=== PATIENT | male | born 1945 | race Caucasian/White ===

== ENCOUNTER 2018-04-24 15:13 | Outpatient (REF) | payer MEDICARE, SELFPAY ==
[2018-04-24 18:30] LABS: HCT 44.3 % (40.0-50.0); HGB 14.9 g/dL (13.5-17.5); Mean Corp. HGB Concentration 33.6 g/dL (32.0-36.0); Mean Corpuscular Hemoglobin 31.1 pg (27.0-33.0); Mean Corpuscular Volume 92.5 fL (80-95); Mean Platelet Volume 11.8 fL (8.0-11.0); Platelet Count 194 x1000/uL (130-400); RBC 4.79 m/cumm (4.50-6.00); RBC Distribution Width 14.5 % (11.8-14.1); White Blood Cell Count 6.16 k/cumm (4.4-10.8)
[2018-04-24 18:46] LABS: Glucose 101 mg/dL (70-100); Uric Acid 6.4 mg/dL (3.5-7.2)
[2018-04-24 18:57] LABS: Hemoglobin A1C 5.9 % (4.5-6.2)
[2018-04-24 19:09] LABS: Cholesterol 187 mg/dL (50-200); HDL Cholesterol 41 mg/dL (40-60); LDL CHOLESTEROL 119 mg/dL (<100); Triglyceride 229 mg/dL (30-150)
== END 2018-04-24 15:14 ==
LOC: NCHCN 15:13
PROVIDERS: PCP Internal Medicine; Visit Provider Internal Medicine
DX: R73.03 Prediabetes (principal); E78.5 Hyperlipidemia, unspecified; M10.9 Gout, unspecified
CPT/HCPCS: 80061; 82947; 83721; 85027; 83036; 84550

== ENCOUNTER 2019-07-06 14:46 | Outpatient (REF) | payer MEDICARE, SELFPAY ==
[2019-07-06 18:55] LABS: HCT 43.3 % (40.0-50.0); HGB 14.7 g/dL (13.5-17.5); Mean Corp. HGB Concentration 33.9 g/dL (32.0-36.0); Mean Corpuscular Hemoglobin 31.5 pg (27.0-33.0); Mean Corpuscular Volume 92.9 fL (80-95); Mean Platelet Volume 11.9 fL (8.0-11.0); Platelet Count 158 x1000/uL (130-400); RBC 4.66 m/cumm (4.50-6.00); RBC Distribution Width 14.2 % (11.8-14.1); White Blood Cell Count 4.54 k/cumm (4.4-10.8)
[2019-07-06 19:20] LABS: ALT 21 U/L (16-63); Anion Gap 9.4 mmol/L (3-11); BUN 17 mg/dL (7-18); CO2 28.6 mmol/L (21.0-32.0); CREATININE 1.14 mg/dL (0.70-1.30); Calcium 9.2 mg/dL (8.5-10.1); Calculated LDL 108 mg/dL; Chloride 101 mmol/L (98-107); Cholesterol 204 mg/dL (50-200); Glucose 115 mg/dL (70-100); HDL Cholesterol 46 mg/dL (40-60); Magnesium 2.1 mg/dL (1.8-2.4); Potassium 4.1 mmol/L (3.5-5.1); Sodium 139 mmol/L (136-145); TSH 2.34 uIU/mL (0.36-3.74); Triglyceride 252 mg/dL (30-150)
[2019-07-06 21:22] LABS: Creatine Kinase 81 U/L (39-308); Uric Acid 3.2 mg/dL (3.5-7.2)
== END 2019-07-06 15:06 ==
LOC: NCHCN 14:46
PROVIDERS: PCP Internal Medicine; Visit Provider Internal Medicine
DX: R73.03 Prediabetes (principal); E78.5 Hyperlipidemia, unspecified; K21.9 Gastro-esophageal reflux disease without esophagitis; M10.9 Gout, unspecified; I49.3 Ventricular premature depolarization
CPT/HCPCS: 80048; 80061; 82550; 85027; 83036; 83735; 84443; 84460; 84550

== ENCOUNTER 2020-07-11 21:14 | Outpatient (REF) | payer MEDICARE, SELFPAY ==
[2020-07-11 19:32] LABS: HCT 44.8 % (40.0-50.0); HGB 15.1 g/dL (13.5-17.5); MCH 32.1 pg (27.0-33.0); MCHC 33.7 % (32.0-36.0); MCV 95.3 fL (80-95); MPV 12.2 fL (8.0-11.0); Platelet Count 156 10^3/uL (130-400); RDW 13.2 % (11.8-14.1); RDW-SD 46.5 fL; WBC 5.26 10^3/uL (4.4-10.8)
[2020-07-11 20:33] LABS: ALT 30 U/L (16-63); Anion Gap 9.6 mmol/L (3-11); BUN 22 mg/dL (7-18); CO2 27.4 mmol/L (21.0-32.0); Calcium 9.5 mg/dL (8.5-10.1); Chloride 100 mmol/L (98-107); Glucose 114 mg/dL (74-106); Potassium 3.9 mmol/L (3.5-5.1); Sodium 137 mmol/L (136-145)
[2020-07-11 21:05] LABS: Calculated LDL 102 mg/dL (<100); Cholesterol 200 mg/dL (<200); HDL Cholesterol 41 mg/dL (40-60); Triglyceride 286 mg/dL (<150)
== END 2020-07-11 21:34 ==
LOC: NCHCN 21:14
PROVIDERS: PCP Internal Medicine; Visit Provider Internal Medicine
DX: Z00.00 Encounter for general adult medical examination without abnormal findings (principal); E78.5 Hyperlipidemia, unspecified; I10 Essential (primary) hypertension
CPT/HCPCS: 80048; 80061; 85027; 84460; 84550

== ENCOUNTER 2021-01-11 18:07 | Outpatient (REF) | payer MEDICARE, SELFPAY ==
[2021-01-11 21:47] LABS: Hemoglobin A1C 5.9 % (<5.7)
[2021-01-12 17:23] LABS: PSA, Screening 14.7 ng/mL (0.0-6.5)
== END 2021-01-11 18:08 | disposition home or self-care (01) ==
LOC: NCHCN 18:07
PROVIDERS: PCP Internal Medicine; Visit Provider Internal Medicine
DX: R73.03 Prediabetes (principal); R33.9 Retention of urine, unspecified; Z12.5 Encounter for screening for malignant neoplasm of prostate
CPT/HCPCS: 84153; 82565; 83036

== ENCOUNTER 2021-02-27 15:07 | Outpatient (REF) | payer MEDICARE, SELFPAY | END 2021-02-27 15:08 | disposition home or self-care (01) | LOC: NCHCN 15:07 | PROVIDERS: PCP Internal Medicine; Visit Provider Internal Medicine | DX: R97.20 Elevated prostate specific antigen [PSA] (principal) | CPT/HCPCS: 84153 ==

== ENCOUNTER 2021-05-05 16:51 | Outpatient (REF) | payer MEDICARE, SELFPAY ==
[2021-05-05 19:38] LABS: HCT 42.7 % (40.0-50.0); HGB 14.1 g/dL (13.5-17.5); MCH 31.4 pg (27.0-33.0); MCV 95.1 fL (80-95); MPV 11.9 fL (8.0-11.0); Platelet Count 146 10^3/uL (130-400); RBC 4.49 10^6/uL (4.36-5.78); RDW-SD 49.3 fL
[2021-05-05 19:43] LABS: Prothrombin Time 9.6 sec (9.3-11.0)
[2021-05-05 19:50] LABS: Anion Gap 10.3 mmol/L (3-11); BUN 24 mg/dL (7-18); CO2 25.7 mmol/L (21.0-32.0); Chloride 102 mmol/L (98-107); Glucose 103 mg/dL (74-106); Potassium 3.8 mmol/L (3.5-5.1); Sodium 138 mmol/L (136-145)
== END 2021-05-05 16:52 | disposition home or self-care (01) ==
LOC: NCHCN 16:51
PROVIDERS: PCP Internal Medicine; Visit Provider Internal Medicine
DX: I10 Essential (primary) hypertension (principal); C61 Malignant neoplasm of prostate
CPT/HCPCS: 80048; 85027; 85610

== ENCOUNTER 2021-07-27 17:31 | Outpatient (REF) | payer MEDICARE, SELFPAY ==
[2021-07-27 19:16] LABS: HCT 40.1 % (40.0-50.0); MCH 30.4 pg (27.0-33.0); MCHC 32.4 % (32.0-36.0); MCV 93.7 fL (80-95); MPV 11.8 fL (8.0-11.0); Platelet Count 167 10^3/uL (130-400); RBC 4.28 10^6/uL (4.36-5.78); RDW-SD 47.9 fL; WBC 4.63 10^3/uL (4.4-10.8)
[2021-07-27 19:50] LABS: ALT 41 U/L (16-63); AST 19 U/L (15-37); Alkaline Phosphatase 102 U/L (46-116); Anion Gap 10.1 mmol/L (3-11); BUN 26 mg/dL (7-18); CO2 27.9 mmol/L (21.0-32.0); Calcium 9.2 mg/dL (8.5-10.1); Chloride 104 mmol/L (98-107); Glucose 121 mg/dL (74-106); Potassium 4.2 mmol/L (3.5-5.1); Sodium 142 mmol/L (136-145); Total Protein 7.1 g/dL (6.4-8.2)
[2021-07-28 18:26] LABS: PSA, Diagnostic 0.1 ng/mL (0.0-6.5)
== END 2021-07-27 17:32 | disposition home or self-care (01) ==
LOC: LBN 17:31
PROVIDERS: PCP Internal Medicine; Visit Provider Anesthesiology Pain Medicine
DX: C61 Malignant neoplasm of prostate (principal)
CPT/HCPCS: 80053; 85027; 84153

== ENCOUNTER 2021-08-09 15:31 | Outpatient (REF) | payer MEDICARE, SELFPAY ==
[2021-08-09 21:20] LABS: ALT 54 U/L (16-63); AST 33 U/L (15-37); Albumin 4.1 g/dL (3.4-5.0); Alkaline Phosphatase 127 U/L (46-116); Anion Gap 9.6 mmol/L (3-11); BUN 27 mg/dL (7-18); Bilirubin, Total 1.3 mg/dL (0.2-1.0); CO2 26.4 mmol/L (21.0-32.0); Calcium 8.9 mg/dL (8.5-10.1); Chloride 104 mmol/L (98-107); Glucose 132 mg/dL (74-106); Sodium 140 mmol/L (136-145); Total Protein 7.3 g/dL (6.4-8.2)
== END 2021-08-09 15:32 | disposition home or self-care (01) ==
LOC: LBN 15:31
PROVIDERS: PCP Internal Medicine; Visit Provider Anesthesiology Pain Medicine
DX: C61 Malignant neoplasm of prostate (principal)
CPT/HCPCS: 80053

== ENCOUNTER 2021-08-15 02:46 | Outpatient (CLI) | payer MEDICARE, SELFPAY ==
[2021-08-15 14:55] LABS: ALT 45 U/L (16-63); AST 22 U/L (15-37); Alkaline Phosphatase 120 U/L (46-116); Anion Gap 9.2 mmol/L (3-11); BUN 24 mg/dL (7-18); Bilirubin, Total 0.8 mg/dL (0.2-1.0); CO2 29.8 mmol/L (21.0-32.0); CREATININE 1.1 mg/dL (0.70-1.30); Calcium 9.3 mg/dL (8.5-10.1); Chloride 105 mmol/L (98-107); Glucose 142 mg/dL (74-106); Potassium 4.2 mmol/L (3.5-5.1); Sodium 144 mmol/L (136-145); Total Protein 7.1 g/dL (6.4-8.2)
== END 2021-08-15 02:47 | disposition home or self-care (01) ==
LOC: LBO 02:46
PROVIDERS: PCP Internal Medicine; Visit Provider Internal Medicine
DX: C61 Malignant neoplasm of prostate (principal)
CPT/HCPCS: 36415; 80053

== ENCOUNTER 2021-11-21 18:21 | Outpatient (REF) | payer MEDICARE, SELFPAY ==
[2021-11-22 18:21] LABS: PSA, Diagnostic <0.1 ng/mL (0.0-6.5)
[2021-11-25 12:11] LABS: Testosterone, Total <7.0 ng/dL (240-950)
== END 2021-11-21 18:22 | disposition home or self-care (01) ==
LOC: LBN 18:21
PROVIDERS: PCP Internal Medicine; Visit Provider Radiology Radiation Oncology
DX: C61 Malignant neoplasm of prostate (principal)
CPT/HCPCS: 84403; 84153

== ENCOUNTER 2022-01-05 15:40 | Outpatient (REF) | payer MEDICARE, SELFPAY ==
[2022-01-05 18:51] LABS: HCT 42.8 % (40.0-50.0); HGB 13.9 g/dL (13.5-17.5); MCH 31.4 pg (27.0-33.0); MCHC 32.5 % (32.0-36.0); MCV 97 fL (80-95); Platelet Count 144 10^3/uL (130-400); RBC 4.43 10^6/uL (4.36-5.78); RDW 13.4 % (11.8-14.1); RDW-SD 48.1 fL; WBC 4.57 10^3/uL (4.4-10.8)
[2022-01-05 19:02] LABS: ALT 23 U/L (16-63); AST 18 U/L (15-37); Albumin 4.4 g/dL (3.4-5.0); Alkaline Phosphatase 115 U/L (46-116); Anion Gap 10.8 mmol/L (3-11); BUN 25 mg/dL (7-18); Bilirubin, Total 1.3 mg/dL (0.2-1.0); CO2 28.2 mmol/L (21.0-32.0); Calcium 9.8 mg/dL (8.5-10.1); Chloride 103 mmol/L (98-107); Cholesterol 215 mg/dL (<200); Glucose 112 mg/dL (74-106); HDL Cholesterol 40 mg/dL (40-60); Potassium 3.5 mmol/L (3.5-5.1); Sodium 142 mmol/L (136-145); Total Protein 7.9 g/dL (6.4-8.2); Triglyceride 516 mg/dL (<150)
[2022-01-05 19:15] LABS: LDL CHOLESTEROL 95 mg/dL (<100)
[2022-01-05 19:41] LABS: Hemoglobin A1C 6.3 % (<5.7)
[2022-01-08 09:43] LABS: PSA, Diagnostic <0.1 ng/mL (<=6.5)
[2022-01-10 16:31] LABS: Testosterone, Total <7.0 ng/dL (240-950)
== END 2022-01-05 15:41 | disposition home or self-care (01) ==
LOC: LBN 15:40
PROVIDERS: PCP Internal Medicine; Visit Provider Internal Medicine
DX: R73.03 Prediabetes (principal); E78.5 Hyperlipidemia, unspecified; C61 Malignant neoplasm of prostate
CPT/HCPCS: 80053; 80061; 83721; 84403; 85027; 83036; 84153

== ENCOUNTER 2022-04-13 15:50 | Outpatient (REF) | payer MEDICARE, SELFPAY ==
[2022-04-13 20:08] LABS: ALT 19 U/L (16-63); AST 17 U/L (15-37); Alkaline Phosphatase 70 U/L (46-116); Anion Gap 11.9 mmol/L (3-11); BUN 25 mg/dL (7-18); CO2 28.1 mmol/L (21.0-32.0); Calcium 9.5 mg/dL (8.5-10.1); Calculated LDL 113 mg/dL (<100); Chloride 103 mmol/L (98-107); Cholesterol 237 mg/dL (<200); Glucose 109 mg/dL (74-106); HDL Cholesterol 47 mg/dL (40-60); Potassium 3.4 mmol/L (3.5-5.1); Sodium 143 mmol/L (136-145); Total Protein 8.2 g/dL (6.4-8.2); Triglyceride 388 mg/dL (<150)
[2022-04-13 20:14] LABS: INR 0.9 (0.9-1.1); Prothrombin Time 8.9 sec (9.3-11.0)
[2022-04-16 09:59] LABS: PSA, Diagnostic <0.1 ng/mL (<=6.5)
[2022-04-29 12:36] LABS: Testosterone, Total <7.0 ng/dL (240-950)
== END 2022-04-13 15:51 | disposition home or self-care (01) ==
LOC: NCHCN 15:50
PROVIDERS: PCP Internal Medicine; Visit Provider Internal Medicine
DX: I10 Essential (primary) hypertension (principal); E78.1 Pure hyperglyceridemia; C61 Malignant neoplasm of prostate; C79.51 Secondary malignant neoplasm of bone; R79.1 Abnormal coagulation profile
CPT/HCPCS: 80053; 80061; 84402; 84403; 84153; 85025; 85610; 85730

== ENCOUNTER 2022-08-10 15:03 | Outpatient (REF) | payer MEDICARE, SELFPAY ==
[2022-08-10 20:53] LABS: Bilirubin Negative (Negative); Blood Negative (Negative); Clarity Sl Cloudy (Clear); Glucose Negative (Negative); Ketones Negative (Negative); Leukocyte Esterase Moderate (Negative); Nitrite Positive (Negative); Specific Gravity 1.015 (1.005-1.025); Urobilinogen 0.2 EU/dL (Up TO 0.2)
[2022-08-10 21:00] LABS: Bacteria Many HPF (Negative); C & S Indicated? Yes; Casts Negative LPF (Negative); Crystals Negative HPF (Negative); Epithelial Cells Rare HPF (Negative); Mucus Negative (Negative); RBC 0-2 HPF (0-2); WBC 20-50 HPF (0-5)
== END 2022-08-10 15:04 | disposition home or self-care (01) ==
LOC: NCHCN 15:03
PROVIDERS: PCP Internal Medicine; Visit Provider Internal Medicine
DX: N13.30 Unspecified hydronephrosis (principal)
CPT/HCPCS: 87077; 81003; 81015; 87086; 87186

== ENCOUNTER 2022-09-24 15:35 | Outpatient (REF) | payer MEDICARE, SELFPAY ==
[2022-09-24 19:21] LABS: Abs Immature Grans 0.02 10^3/uL (0.0-0.06); Absolute Basophil Count 0.09 10^3/uL (0.0-0.2); Absolute Eosinophil Count 0.11 10^3/uL (0.0-0.7); Absolute Lymphocyte Count 2.09 10^3/uL (1.2-3.4); Absolute Monocyte Count 0.51 10^3/uL (0.1-0.8); Absolute Neutrophil Count 2.14 10^3/uL (1.2-6.7); Basophils % 1.8; Eosinophils % 2.2; HCT 40.4 % (40.0-50.0); HGB 13.7 g/dL (13.5-17.5); Immature Grans % 0.4; Lymphocytes % 42.1; MCH 32.9 pg (27.0-33.0); MCHC 33.9 % (32.0-36.0); MCV 97 fL (80-95); MPV 11.3 fL (8.0-11.0); Monocytes % 10.3; Neutrophils % 43.2; Platelet Count 203 10^3/uL (130-400); RBC 4.17 10^6/uL (4.36-5.78); RDW 13.4 % (11.8-14.1); RDW-SD 47.9 fL; WBC 4.96 10^3/uL (4.4-10.8)
[2022-09-24 19:22] LABS: ESR 18 mm/hr (0-20)
[2022-09-24 19:47] LABS: ALT 20 U/L (16-63); AST 20 U/L (15-37); Albumin 4.1 g/dL (3.4-5.0); Alkaline Phosphatase 118 U/L (46-116); Anion Gap 10.5 mmol/L (3-11); BUN 21 mg/dL (7-18); Bilirubin, Total 0.9 mg/dL (0.2-1.0); CO2 28.5 mmol/L (21.0-32.0); CREATININE 1.1 mg/dL (0.70-1.30); Calcium 9.9 mg/dL (8.5-10.1); Calculated LDL 112 mg/dL (<100); Chloride 100 mmol/L (98-107); Cholesterol 227 mg/dL (<200); Estimated GFR 69.57 (mL/min/1.73m2); Glucose 111 mg/dL (74-106); HDL Cholesterol 44 mg/dL (40-60); Potassium 3.7 mmol/L (3.5-5.1); Sodium 139 mmol/L (136-145); TSH 4.19 uIU/mL (0.36-3.74); Triglyceride 357 mg/dL (<150)
[2022-09-24 20:11] LABS: C-Reactive Protein 0.62 mg/dL (0.0-0.3); FREE T4 1.15 ng/dL (0.76-1.46)
[2022-09-25 18:49] LABS: PSA, Diagnostic <0.1 ng/mL (<=6.5)
[2022-10-02 15:07] LABS: Testosterone, Free <0.13 ng/dL (3.08-11.3); Testosterone, Total <7.0 ng/dL (240-950)
== END 2022-09-24 15:36 | disposition home or self-care (01) ==
LOC: NCHCN 15:35
PROVIDERS: PCP Internal Medicine; Visit Provider Internal Medicine
DX: E78.1 Pure hyperglyceridemia (principal); C79.51 Secondary malignant neoplasm of bone; I10 Essential (primary) hypertension; C61 Malignant neoplasm of prostate; E78.5 Hyperlipidemia, unspecified
CPT/HCPCS: 80053; 80061; 84402; 84403; 85652; 84153; 84439; 84443; 85025; 86140

== ENCOUNTER 2022-10-15 17:38 | Outpatient (REF) | payer MEDICARE, SELFPAY ==
[2022-10-15 19:23] LABS: Abs Immature Grans 0.01 10^3/uL (0.0-0.06); Absolute Basophil Count 0.06 10^3/uL (0.0-0.2); Absolute Lymphocyte Count 1.65 10^3/uL (1.2-3.4); Absolute Monocyte Count 0.58 10^3/uL (0.1-0.8); Absolute Neutrophil Count 3.79 10^3/uL (1.2-6.7); Basophils % 0.9; Eosinophils % 6.2; HCT 38.3 % (40.0-50.0); HGB 13.2 g/dL (13.5-17.5); Immature Grans % 0.2; Lymphocytes % 25.4; MCH 31.4 pg (27.0-33.0); MCHC 34.5 % (32.0-36.0); MCV 91 fL (80-95); MPV 11.4 fL (8.0-11.0); Monocytes % 8.9; Neutrophils % 58.4; Platelet Count 220 10^3/uL (130-400); RDW 13.7 % (11.8-14.1); RDW-SD 45.8 fL; WBC 6.49 10^3/uL (4.4-10.8)
[2022-10-15 19:27] LABS: ESR 48 mm/hr (0-20)
[2022-10-15 19:44] LABS: ALT 108 U/L (16-63); AST 238 U/L (15-37); Albumin 3.5 g/dL (3.4-5.0); Alkaline Phosphatase 85 U/L (46-116); Anion Gap 11.8 mmol/L (3-11); BUN 19 mg/dL (7-18); Bilirubin, Total 1.2 mg/dL (0.2-1.0); C-Reactive Protein 8.73 mg/dL (0.0-0.3); CO2 28.2 mmol/L (21.0-32.0); Calcium 9.3 mg/dL (8.5-10.1); Chloride 104 mmol/L (98-107); Glucose 112 mg/dL (74-106); Sodium 144 mmol/L (136-145)
[2022-10-15 19:47] LABS: Diff Comment PLT Morph Reviewed; RBC Morphology Normal
[2022-10-15 20:15] LABS: Creatine Kinase 6072 U/L (39-308); Potassium 2.5 mmol/L (3.5-5.1)
[2022-10-17 09:29] LABS: Lyme Ab w Rflx to Lyme Confirm Positive (Negative)
[2022-10-17 13:04] LABS: Lyme IgG Ab Positive (Negative); Lyme IgM Ab Negative (Negative)
== END 2022-10-15 17:39 | disposition home or self-care (01) ==
LOC: NCHCN 17:38
PROVIDERS: PCP Internal Medicine; Visit Provider Internal Medicine
DX: R53.1 Weakness (principal)
CPT/HCPCS: 80053; 82550; 85652; 86617; 85025; 86140; 86618

== ENCOUNTER 2023-03-28 17:30 | Outpatient (REF) | payer MEDICARE, SELFPAY ==
[2023-03-28 19:10] LABS: ESR 27 mm/hr (0-20)
[2023-03-28 19:11] LABS: Abs Immature Grans 0.02 10^3/uL (0.0-0.06); Absolute Basophil Count 0.05 10^3/uL (0.0-0.2); Absolute Eosinophil Count 0.25 10^3/uL (0.0-0.7); Absolute Lymphocyte Count 1.41 10^3/uL (1.2-3.4); Absolute Monocyte Count 0.43 10^3/uL (0.1-0.8); Absolute Neutrophil Count 3.74 10^3/uL (1.2-6.7); Basophils % 0.8; Eosinophils % 4.2; HCT 40.3 % (40.0-50.0); HGB 13.6 g/dL (13.5-17.5); Immature Grans % 0.3; Lymphocytes % 23.9; MCH 30.9 pg (27.0-33.0); MCHC 33.7 % (32.0-36.0); MCV 92 fL (80-95); MPV 11.6 fL (8.0-11.0); Monocytes % 7.3; Neutrophils % 63.5; Platelet Count 189 10^3/uL (130-400); RDW 13.9 % (11.8-14.1); RDW-SD 47.2 fL
[2023-03-28 19:25] LABS: ALT 43 U/L (16-63); AST 28 U/L (15-37); Albumin 4.1 g/dL (3.4-5.0); Alkaline Phosphatase 137 U/L (46-116); Anion Gap 11.9 mmol/L (3-11); BUN 23 mg/dL (7-18); C-Reactive Protein 2.87 mg/dL (0.0-0.3); CO2 25.1 mmol/L (21.0-32.0); Calcium 10.2 mg/dL (8.5-10.1); Chloride 103 mmol/L (98-107); Glucose 144 mg/dL (74-106); Sodium 140 mmol/L (136-145); Total Protein 8.1 g/dL (6.4-8.2)
[2023-03-28 20:19] LABS: Hemoglobin A1C 6.3 % (<5.7)
[2023-03-29 20:54] LABS: PSA, Diagnostic <0.1 ng/mL (<=6.5)
== END 2023-03-28 17:31 | disposition home or self-care (01) ==
LOC: NCHCN 17:30
PROVIDERS: PCP Internal Medicine; Visit Provider Internal Medicine
DX: E11.9 Type 2 diabetes mellitus without complications (principal); I10 Essential (primary) hypertension; M62.82 Rhabdomyolysis; C61 Malignant neoplasm of prostate; R70.0 Elevated erythrocyte sedimentation rate; R79.82 Elevated C-reactive protein (CRP)
CPT/HCPCS: 80053; 85652; 83036; 84153; 85025; 86140

== ENCOUNTER 2023-04-10 17:18 | Outpatient (REF) | payer MEDICARE, SELFPAY ==
[2023-04-10 20:37] LABS: Epithelial Cells Moderate HPF (Negative); RBC 0-2 HPF (0-2)
[2023-04-10 20:38] LABS: Bacteria Moderate HPF (Negative); C & S Indicated? No/Sq. Contamination; Crystals Negative HPF (Negative); Mucus Negative (Negative); Other Cells Rare Transitional (Negative)
== END 2023-04-10 17:19 | disposition home or self-care (01) ==
LOC: NCHCN 17:18
PROVIDERS: PCP Internal Medicine; Visit Provider Internal Medicine
DX: N39.46 Mixed incontinence (principal); R82.998 Other abnormal findings in urine; N13.30 Unspecified hydronephrosis
CPT/HCPCS: 87077; 81015; 87086; 87186

== ENCOUNTER 2023-08-22 20:46 | Outpatient (REF) | payer MEDICARE, OTHER, SELFPAY ==
[2023-08-22 19:20] LABS: Reticulocyte 2.8 % (0.5-2.4)
[2023-08-22 19:40] LABS: Total Iron Binding Capacity 327 ug/dL (250-450)
[2023-08-22 19:48] LABS: Hemoglobin A1C 5.9 % (<5.7)
[2023-08-22 20:08] LABS: Ferritin 768 ng/mL (26-388); Vitamin B12 293 pg/mL (193-986)
[2023-08-22 20:13] LABS: GGT 55 U/L (15-85)
[2023-08-23 10:30] LABS: Iron 117 ug/dL (65-175)
[2023-08-26 11:32] LABS: Kappa Free Light Chain 2.31 mg/dL (0.33-1.94); Lambda Free Light Chain 1.19 mg/dL (0.57-2.63)
[2023-08-26 14:28] LABS: Albumin 61.5 % (55.8-66.1); Albumin g/dL 4.9 g/dL (3.6-5.2); Immunotyping, Serum (See Note); Total Protein 7.9 g/dL (6.3-8.2)
[2023-08-26 14:40] LABS: Albumin, Urine % 13.1 %; Albumin, Urine mg/dL 1 mg/dL; Globulins, Urine % 86.9 %; Globulins, Urine mg/dL 10 mg/dL; Immunotyping, Urine (See Note); Total Protein Urine 11 mg/dL (See Note)
== END 2023-08-22 20:47 | disposition home or self-care (01) ==
LOC: NCHCN 20:46
PROVIDERS: PCP Internal Medicine; Visit Provider Internal Medicine
DX: D64.9 Anemia, unspecified (principal)
CPT/HCPCS: 84156; 84166; 86335; 82607; 82728; 82977; 83036; 83540; 83550; 83883; 84155; 84165; 85045; 86320

== ENCOUNTER 2023-11-13 22:43 | Outpatient (REF) | payer MEDICARE, OTHER, SELFPAY ==
[2023-11-13 19:59] LABS: HGB 10.6 g/dL (13.5-17.5); MCH 36.1 pg (27.0-33.0); MCHC 34.2 % (32.0-36.0); MPV 11.1 fL (8.0-11.0); RBC 2.94 10^6/uL (4.36-5.78); RDW 15.4 % (11.8-14.1); RDW-SD 59.1 fL
[2023-11-13 20:48] LABS: WBC 1.43 10^3/uL (4.4-10.8)
[2023-11-13 20:50] LABS: Platelet Count 71 10^3/uL (130-400)
[2023-11-13 20:51] LABS: MCV 105 fL (80-95)
[2023-11-13 22:02] LABS: Absolute Lymphocyte Count 1.27 10^3/uL (1.2-3.4); Absolute Neutrophil Count 0.11 10^3/uL (1.2-6.7)
[2023-11-13 22:03] LABS: Absolute Eosinophil Count 0.01 10^3/uL (0.0-0.7); Absolute Monocyte Count 0.01 10^3/uL (0.1-0.8)
[2023-11-13 22:05] LABS: Absolute Basophil Count 0.01 10^3/uL (0.0-0.2); Diff Comment Diff Reviewed
[2023-11-13 22:06] LABS: Macrocytosis 1+; Polychromasia Present
== END 2023-11-13 22:44 | disposition home or self-care (01) ==
LOC: NCHCN 22:43
PROVIDERS: PCP Internal Medicine; Visit Provider Internal Medicine
DX: D72.819 Decreased white blood cell count, unspecified (principal); I10 Essential (primary) hypertension
CPT/HCPCS: 85027; 85007

== ENCOUNTER 2023-12-09 13:29 | Outpatient (REF) | payer MEDICARE, OTHER, SELFPAY ==
[2023-12-09 18:48] LABS: Absolute Eosinophil Count 0.01 10^3/uL (0.0-0.7); HCT 25.6 % (40.0-50.0); HGB 8.8 g/dL (13.5-17.5); MCH 37.6 pg (27.0-33.0); MCHC 34.4 % (32.0-36.0); MCV 109 fL (80-95); MPV 10.8 fL (8.0-11.0); RBC 2.34 10^6/uL (4.36-5.78); RDW 16.5 % (11.8-14.1); RDW-SD 64.8 fL
[2023-12-09 19:22] LABS: Absolute Lymphocyte Count 1.02 10^3/uL (1.2-3.4); Absolute Monocyte Count 0.01 10^3/uL (0.1-0.8); Atypical Lymphocytes % 9
[2023-12-09 19:23] LABS: Other Cells % 6
[2023-12-09 19:25] LABS: Platelet Count 76 10^3/uL (130-400)
[2023-12-09 19:32] LABS: Absolute Neutrophil Count 0.07 10^3/uL (1.2-6.7)
[2023-12-09 19:33] LABS: Macrocytosis 1+; WBC 1.19 10^3/uL (4.4-10.8)
== END 2023-12-09 13:30 | disposition home or self-care (01) ==
LOC: NCHCN 13:29
PROVIDERS: PCP Internal Medicine; Visit Provider Internal Medicine
DX: C92.00 Acute myeloblastic leukemia, not having achieved remission (principal)
CPT/HCPCS: 85025

== ENCOUNTER 2024-01-06 05:27 | Outpatient (RCR) | payer MEDICARE, SELFPAY ==
[2023-12-16 12:23] LABS: HCT 23.7 % (40.0-50.0); HGB 8.1 g/dL (13.5-17.5); MCH 38.6 pg (27.0-33.0); MCHC 34.2 % (32.0-36.0); MCV 113 fL (80-95); MPV 10.5 fL (8.0-11.0); Platelet Count 76 10^3/uL (130-400); RDW 16.4 % (11.8-14.1); RDW-SD 66.7 fL
[2023-12-16 12:37] LABS: ALT 25 U/L (16-63); AST 20 U/L (15-37); Albumin 3.9 g/dL (3.4-5.0); Alkaline Phosphatase 84 U/L (46-116); BUN 24 mg/dL (7-18); Bilirubin, Total 1.3 mg/dL (0.2-1.0); CREATININE 1.2 mg/dL (0.70-1.30); Calcium 9.6 mg/dL (8.5-10.1); Calculated LDL 45 mg/dL (<100); Chloride 105 mmol/L (98-107); Cholesterol 154 mg/dL (<200); Estimated GFR 62.29 (mL/min/1.73m2); Glucose 165 mg/dL (74-106); HDL Cholesterol 37 mg/dL (40-60); Potassium 3.6 mmol/L (3.5-5.1); Sodium 143 mmol/L (136-145); Total Protein 7.3 g/dL (6.4-8.2); Triglyceride 362 mg/dL (<150); Uric Acid 2.2 mg/dL (3.5-7.2)
[2023-12-16 12:49] LABS: Creatine Kinase 76 U/L (39-308)
[2023-12-16 13:13] LABS: Absolute Lymphocyte Count 1.34 10^3/uL (1.2-3.4); Absolute Monocyte Count 0.08 10^3/uL (0.1-0.8); Atypical Lymphocytes % 3
[2023-12-16 13:14] LABS: Absolute Eosinophil Count 0.02 10^3/uL (0.0-0.7); Absolute Neutrophil Count 0.03 10^3/uL (1.2-6.7)
[2023-12-16 13:15] LABS: Diff Comment Manual Differential; Other Cells % 4; WBC 1.52 10^3/uL (4.4-10.8)
[2023-12-16 13:16] LABS: Hypochromasia 2+; Macrocytosis 2+
[2023-12-19 09:29] LABS: HCT 21.6 % (40.0-50.0); HGB 7.6 g/dL (13.5-17.5); MCH 39.2 pg (27.0-33.0); MCHC 35.2 % (32.0-36.0); MCV 111 fL (80-95); MPV 10.6 fL (8.0-11.0); RBC 1.94 10^6/uL (4.36-5.78); RDW 16.1 % (11.8-14.1); RDW-SD 64.8 fL
[2023-12-19 10:12] LABS: Anisocytosis 1+; Platelet Count 72 10^3/uL (130-400)
[2023-12-19 10:14] LABS: Macrocytosis 1+
[2023-12-19 10:15] LABS: Absolute Eosinophil Count 0.03 10^3/uL (0.0-0.7)
[2023-12-19 10:16] LABS: Diff Comment Manual Differential
[2023-12-19 10:17] LABS: Absolute Neutrophil Count 0.13 10^3/uL (1.2-6.7)
[2023-12-19 10:18] LABS: WBC 1.46 10^3/uL (4.4-10.8)
[2023-12-19 10:27] VITALS: BP 95/56; PULSE 75; RESP 20; TEMP 36.4; O2SAT 97
[2023-12-19 10:42] VITALS: BP 135/81; PULSE 66; RESP 18; TEMP 36.4; O2SAT 98
[2023-12-19 11:00] VITALS: BP 123/61; PULSE 67; RESP 17; TEMP 36.4; O2SAT 98
[2023-12-19 11:30] VITALS: BP 110/68; PULSE 67; RESP 17; TEMP 36.2; O2SAT 95
[2023-12-19 12:30] VITALS: BP 110/57; PULSE 74; RESP 18; TEMP 36.2; O2SAT 95
[2023-12-19 12:50] VITALS: BP 120/68; PULSE 68; RESP 18; TEMP 36.2; O2SAT 95
[2023-12-19] MEDS: Normal Saline Flush 10 ML SYR IVP (13:06)
[2023-12-23 09:44] LABS: Absolute Monocyte Count 0.01 10^3/uL (0.1-0.8); HCT 25.4 % (40.0-50.0); MCHC 35.4 % (32.0-36.0); MCV 102 fL (80-95); RDW 19.1 % (11.8-14.1); RDW-SD 71.8 fL
[2023-12-23 10:54] LABS: Absolute Eosinophil Count 0.01 10^3/uL (0.0-0.7); Absolute Lymphocyte Count 0.95 10^3/uL (1.2-3.4); Atypical Lymphocytes % 3; Platelet Count 59 10^3/uL (130-400)
[2023-12-23 10:55] LABS: Diff Comment Manual Differential; RBC Morphology Normal
[2023-12-23 10:57] LABS: Absolute Neutrophil Count 0.08 10^3/uL (1.2-6.7); WBC 1.06 10^3/uL (4.4-10.8)
[2023-12-26 09:31] LABS: Absolute Eosinophil Count 0.01 10^3/uL (0.0-0.7); Absolute Lymphocyte Count 1.35 10^3/uL (1.2-3.4); Absolute Monocyte Count 0.01 10^3/uL (0.1-0.8); Eosinophils % 0.7; HCT 24.5 % (40.0-50.0); HGB 8.6 g/dL (13.5-17.5); Lymphocytes % 93.8; MCH 35.5 pg (27.0-33.0); MCHC 35.1 % (32.0-36.0); MCV 101 fL (80-95); MPV 9.7 fL (8.0-11.0); Monocytes % 0.7; Neutrophils % 4.8; RBC 2.42 10^6/uL (4.36-5.78); RDW-SD 70.4 fL
[2023-12-26 10:10] LABS: Diff Comment Agrees w/ Instrument; RBC Morphology Normal
[2023-12-26 10:11] LABS: Platelet Count 58 10^3/uL (130-400)
[2023-12-26 10:14] LABS: WBC 1.44 10^3/uL (4.4-10.8)
[2023-12-26 10:15] LABS: Absolute Neutrophil Count 0.07 10^3/uL (1.2-6.7)
[2023-12-30 09:24] LABS: Absolute Monocyte Count 0.02 10^3/uL (0.1-0.8); HCT 25.3 % (40.0-50.0); HGB 8.8 g/dL (13.5-17.5); MCH 36.4 pg (27.0-33.0); MCHC 34.8 % (32.0-36.0); MCV 105 fL (80-95); MPV 10.1 fL (8.0-11.0); RBC 2.42 10^6/uL (4.36-5.78); RDW-SD 74.3 fL
[2023-12-30] MEDS: Normal Saline Flush 10 ML SYR IVP (10:07)
[2023-12-30 10:27] LABS: Absolute Lymphocyte Count 1.59 10^3/uL (1.2-3.4); Anisocytosis 1+; Atypical Lymphocytes % 1; Diff Comment Manual Differential; RBC Morphology Normal
[2023-12-30 10:28] LABS: Platelet Count 89 10^3/uL (130-400)
[2023-12-30 10:29] LABS: Absolute Neutrophil Count 0.12 10^3/uL (1.2-6.7); WBC 1.73 10^3/uL (4.4-10.8)
[2024-01-02 09:21] LABS: HCT 26.4 % (40.0-50.0); MCH 36.9 pg (27.0-33.0); MCHC 34.1 % (32.0-36.0); MCV 108 fL (80-95); MPV 10.1 fL (8.0-11.0); Platelet Count 173 10^3/uL (130-400); RBC 2.44 10^6/uL (4.36-5.78); RDW 21.9 % (11.8-14.1); RDW-SD 86.1 fL
[2024-01-02 09:35] LABS: WBC 1.51 10^3/uL (4.4-10.8)
[2024-01-02 09:36] LABS: Anisocytosis 2+; Diff Comment Manual Differential; Macrocytosis 1+; Polychromasia Present
[2024-01-02 09:37] LABS: Absolute Monocyte Count 0.03 10^3/uL (0.1-0.8)
[2024-01-02 09:38] LABS: Absolute Neutrophil Count 0.08 10^3/uL (1.2-6.7)
[2024-01-06 09:24] LABS: Absolute Monocyte Count 0.01 10^3/uL (0.1-0.8); HCT 27.4 % (40.0-50.0); HGB 9.2 g/dL (13.5-17.5); MCH 36.8 pg (27.0-33.0); MCHC 33.6 % (32.0-36.0); MCV 110 fL (80-95); MPV 9.6 fL (8.0-11.0); Monocytes % 0.9; RDW 22.2 % (11.8-14.1); RDW-SD 88.4 fL
[2024-01-06 10:10] LABS: Absolute Basophil Count 0.02 10^3/uL (0.0-0.2); Absolute Lymphocyte Count 1.06 10^3/uL (1.2-3.4); Diff Comment Manual Differential; Platelet Count 474 10^3/uL (130-400)
[2024-01-06 10:11] LABS: Anisocytosis 3+; Macrocytosis 2+; Polychromasia Present
[2024-01-06 10:13] LABS: Absolute Neutrophil Count 0.02 10^3/uL (1.2-6.7)
== END 2024-01-07 23:59 | disposition home or self-care (01) ==
LOC: INF 05:27
PROVIDERS: PCP Internal Medicine; Visit Provider Nurse Practitioner Adult Health
DX: C92.00 Acute myeloblastic leukemia, not having achieved remission (principal); E78.5 Hyperlipidemia, unspecified
CPT/HCPCS: 36415; 36430; 80053; 80061; 82550; 86850; 86900; 86901; 86920; 83036; 84550; 85025; P9016

== ENCOUNTER 2024-01-16 13:20 | Outpatient (CLI) | payer MEDICARE, SELFPAY ==
--- NOTE | 2024-01-16 13:15 | RT.EKG_ITS ---
APPROVED REPORT Exam: Resting ECG Reason for Exam: PALPITATIONS Patient Location: O HR:86 bpm ECG Measurements Heart Rate 86 AXIS MT 167 P 32 QRSd 99 QRS -8 QT 397 T 39 QTc 475 Conclusion Sinus rhythm...normal P axis, V-rate 50- 99 ventricular premature complexes...short R-R, variable morphology Otherwise normal ECG
== END 2024-01-16 13:21 | disposition home or self-care (01) ==
PROVIDERS: PCP Internal Medicine; Visit Provider Internal Medicine Hematology & Oncology
DX: C92.00 Acute myeloblastic leukemia, not having achieved remission (principal)
CPT/HCPCS: 93005; 93010

== ENCOUNTER 2024-02-05 11:30 | Outpatient (RCR) | payer MEDICARE, SELFPAY ==
[2024-01-08 00:14] VITALS: BP 120/68; PULSE 68; RESP 18; TEMP 36.2
[2024-01-09 09:07] LABS: Abs Immature Grans 0.04 10^3/uL (0.0-0.06); Absolute Basophil Count 0.01 10^3/uL (0.0-0.2); Absolute Lymphocyte Count 1.42 10^3/uL (1.2-3.4); Absolute Monocyte Count 0.05 10^3/uL (0.1-0.8); Basophils % 0.6 %; HCT 28.9 % (40.0-50.0); HGB 9.8 g/dL (13.5-17.5); Immature Grans % 2.5 %; Lymphocytes % 89.3 %; MCH 37.4 pg (27.0-33.0); MCHC 33.9 % (32.0-36.0); MCV 110 fL (80-95); MPV 9.5 fL (8.0-11.0); Monocytes % 3.1 %; Neutrophils % 4.5 %; Nucleated RBC 1.3 % (0.0-0.3); Platelet Count 634 10^3/uL (130-400); RBC 2.62 10^6/uL (4.36-5.78); RDW 21.8 % (11.8-14.1)
[2024-01-09 09:19] LABS: WBC 1.59 10^3/uL (4.4-10.8)
[2024-01-09 09:20] LABS: Absolute Neutrophil Count 0.07 10^3/uL (1.2-6.7); Anisocytosis 2+; Diff Comment Diff Reviewed; Macrocytosis 2+
[2024-01-13 09:24] LABS: Abs Immature Grans 0.04 10^3/uL (0.0-0.06); Absolute Basophil Count 0.03 10^3/uL (0.0-0.2); Absolute Lymphocyte Count 1.37 10^3/uL (1.2-3.4); Basophils % 1.3 %; HCT 30.8 % (40.0-50.0); Immature Grans % 1.7 %; Lymphocytes % 59.8 %; MCH 35.8 pg (27.0-33.0); MCHC 32.5 % (32.0-36.0); MCV 110 fL (80-95); MPV 9.7 fL (8.0-11.0); Monocytes % 21.8 %; Neutrophils % 15.4 %; Platelet Count 591 10^3/uL (130-400); RBC 2.79 10^6/uL (4.36-5.78); RDW 20.7 % (11.8-14.1); RDW-SD 81.9 fL; WBC 2.29 10^3/uL (4.4-10.8)
[2024-01-13 09:48] LABS: ALT 19 U/L (16-63); AST 15 U/L (15-37); Albumin 3.7 g/dL (3.4-5.0); Alkaline Phosphatase 81 U/L (46-116); Anion Gap 11.4 mmol/L (3-11); BUN 19 mg/dL (7-18); Bilirubin, Total 0.8 mg/dL (0.2-1.0); CO2 25.6 mmol/L (21.0-32.0); Calcium 9.3 mg/dL (8.5-10.1); Chloride 105 mmol/L (98-107); Estimated GFR 77.52 (mL/min/1.73m2); Glucose 148 mg/dL (74-106); Potassium 3.6 mmol/L (3.5-5.1); Sodium 142 mmol/L (136-145)
[2024-01-13 09:49] LABS: Anisocytosis 2+; Diff Comment Diff Reviewed; Macrocytosis 2+
[2024-01-13 09:50] LABS: Absolute Neutrophil Count 0.35 10^3/uL (1.2-6.7)
[2024-01-21 14:24] LABS: Abs Immature Grans 0.08 10^3/uL (0.0-0.06); Absolute Basophil Count 0.03 10^3/uL (0.0-0.2); Absolute Lymphocyte Count 1.49 10^3/uL (1.2-3.4); Absolute Monocyte Count 0.53 10^3/uL (0.1-0.8); Absolute Neutrophil Count 2.84 10^3/uL (1.2-6.7); Basophils % 0.6 %; HCT 32.8 % (40.0-50.0); HGB 10.8 g/dL (13.5-17.5); Immature Grans % 1.6 %; MCH 35.6 pg (27.0-33.0); MCHC 32.9 % (32.0-36.0); MPV 10.3 fL (8.0-11.0); Monocytes % 10.7 %; Neutrophils % 57.1 %; Nucleated RBC 0.8 % (0.0-0.3); Platelet Count 314 10^3/uL (130-400); RBC 3.03 10^6/uL (4.36-5.78); RDW 19.4 % (11.8-14.1); RDW-SD 76.2 fL; WBC 4.97 10^3/uL (4.4-10.8)
[2024-01-21 14:26] LABS: MCV 108 fL (80-95)
[2024-01-27 10:07] LABS: Abs Immature Grans 0.02 10^3/uL (0.0-0.06); Absolute Basophil Count 0.02 10^3/uL (0.0-0.2); Absolute Monocyte Count 0.75 10^3/uL (0.1-0.8); Absolute Neutrophil Count 1.79 10^3/uL (1.2-6.7); Basophils % 0.5 %; HCT 35.3 % (40.0-50.0); HGB 11.7 g/dL (13.5-17.5); Immature Grans % 0.5 %; Lymphocytes % 39.7 %; MCH 36.3 pg (27.0-33.0); MCHC 33.1 % (32.0-36.0); MCV 110 fL (80-95); MPV 11.3 fL (8.0-11.0); Monocytes % 17.5 %; Neutrophils % 41.8 %; Platelet Count 213 10^3/uL (130-400); RBC 3.22 10^6/uL (4.36-5.78); RDW 18.5 % (11.8-14.1); WBC 4.28 10^3/uL (4.4-10.8)
[2024-02-05 11:44] LABS: Absolute Lymphocyte Count 1.89 10^3/uL (1.2-3.4); Absolute Neutrophil Count 1.81 10^3/uL (1.2-6.7); Basophils % 0.7 %; Eosinophils % 0.2 %; HCT 37.1 % (40.0-50.0); HGB 12.3 g/dL (13.5-17.5); Immature Grans % 0.2 %; Lymphocytes % 45.1 %; MCH 35.8 pg (27.0-33.0); MCHC 33.2 % (32.0-36.0); MCV 108 fL (80-95); MPV 11.2 fL (8.0-11.0); Monocytes % 10.5 %; Neutrophils % 43.3 %; Platelet Count 108 10^3/uL (130-400); RBC 3.44 10^6/uL (4.36-5.78); RDW 16.3 % (11.8-14.1); RDW-SD 65.2 fL; WBC 4.19 10^3/uL (4.4-10.8)
[2024-02-05 11:45] LABS: Abs Immature Grans 0.01 10^3/uL (0.0-0.06); Absolute Basophil Count 0.03 10^3/uL (0.0-0.2); Absolute Eosinophil Count 0.01 10^3/uL (0.0-0.7); Absolute Monocyte Count 0.44 10^3/uL (0.1-0.8)
[2024-02-07 12:07] LABS: PSA, Ultrasensitive <0.01 ng/mL (<= 6.5)
== END 2024-02-07 23:59 | disposition home or self-care (01) ==
LOC: INF 11:30
PROVIDERS: PCP Internal Medicine; Visit Provider Nurse Practitioner Adult Health
DX: C92.00 Acute myeloblastic leukemia, not having achieved remission (principal); C61 Malignant neoplasm of prostate; C79.51 Secondary malignant neoplasm of bone
CPT/HCPCS: 36415; 80053; 84153; 86850; 86900; 86901; 85025

== ENCOUNTER 2024-02-14 15:27 | Outpatient (REF) | payer MEDICARE, SELFPAY ==
[2024-02-14 15:41] LABS: ALT 22 U/L (16-63); AST 15 U/L (15-37); Albumin 3.6 g/dL (3.4-5.0); Alkaline Phosphatase 89 U/L (46-116); Anion Gap 8.1 mmol/L (3-11); BUN 18 mg/dL (7-18); Bilirubin, Total 1.4 mg/dL (0.2-1.0); CO2 27.9 mmol/L (21.0-32.0); Calcium 9.7 mg/dL (8.5-10.1); Chloride 105 mmol/L (98-107); Estimated GFR 77.52 (mL/min/1.73m2); Glucose 246 mg/dL (74-106); Potassium 3.9 mmol/L (3.5-5.1); Sodium 141 mmol/L (136-145); Total Protein 6.7 g/dL (6.4-8.2)
== END 2024-02-14 15:28 | disposition home or self-care (01) ==
LOC: LBN 15:27
PROVIDERS: PCP Internal Medicine; Visit Provider Nurse Practitioner Adult Health
DX: C92.00 Acute myeloblastic leukemia, not having achieved remission (principal)
CPT/HCPCS: 80053

== ENCOUNTER 2024-03-04 01:15 | Outpatient (RCR) | payer MEDICARE, SELFPAY ==
[2024-02-08 00:23] VITALS: BP 120/68; PULSE 68; RESP 18; TEMP 36.2
[2024-03-04 12:43] LABS: Absolute Basophil Count 0.03 10^3/uL (0.0-0.2); Absolute Lymphocyte Count 1.14 10^3/uL (1.2-3.4); Absolute Monocyte Count 0.08 10^3/uL (0.1-0.8); HCT 37.7 % (40.0-50.0); HGB 12.5 g/dL (13.5-17.5); Lymphocytes % 75.5 %; MCH 34.9 pg (27.0-33.0); MCHC 33.2 % (32.0-36.0); MCV 105 fL (80-95); MPV 10.3 fL (8.0-11.0); Monocytes % 5.3 %; Neutrophils % 17.2 %; Platelet Count 313 10^3/uL (130-400); RBC 3.58 10^6/uL (4.36-5.78); RDW 14.2 % (11.8-14.1); RDW-SD 55.4 fL
[2024-03-04 12:56] LABS: ALT 20 U/L (16-63); AST 12 U/L (15-37); Albumin 4.1 g/dL (3.4-5.0); Alkaline Phosphatase 77 U/L (46-116); Anion Gap 10.8 mmol/L (3-11); BUN 20 mg/dL (7-18); CO2 26.2 mmol/L (21.0-32.0); Calcium 9.8 mg/dL (8.5-10.1); Chloride 107 mmol/L (98-107); Estimated GFR 77.52 (mL/min/1.73m2); Glucose 171 mg/dL (74-106); Potassium 4.6 mmol/L (3.5-5.1); Sodium 144 mmol/L (136-145); Total Protein 7.3 g/dL (6.4-8.2)
[2024-03-04 13:02] LABS: WBC 1.51 10^3/uL (4.4-10.8)
[2024-03-04 13:03] LABS: Absolute Neutrophil Count 0.26 10^3/uL (1.2-6.7)
== END 2024-03-08 23:59 | disposition home or self-care (01) ==
LOC: INF 01:15
PROVIDERS: PCP Internal Medicine; Visit Provider Nurse Practitioner Adult Health
DX: C92.00 Acute myeloblastic leukemia, not having achieved remission (principal)
CPT/HCPCS: 36415; 80053; 85025

== ENCOUNTER 2024-03-08 09:37 | Outpatient (REF) | payer MEDICARE, SELFPAY ==
[2024-03-06 19:10] LABS: Iron 70 ug/dL (65-175); Total Iron Binding Capacity 307 ug/dL (250-450); Transferrin Sat 23 % (20-55)
[2024-03-06 19:24] LABS: Ferritin 781 ng/mL (26-388)
== END 2024-03-08 09:38 | disposition home or self-care (01) ==
LOC: NCHCN 09:37
PROVIDERS: PCP Internal Medicine; Visit Provider Internal Medicine
DX: G25.81 Restless legs syndrome (principal); C92.00 Acute myeloblastic leukemia, not having achieved remission
CPT/HCPCS: 82728; 83540; 83550

== ENCOUNTER 2024-04-01 01:55 | Outpatient (RCR) | payer MEDICARE, SELFPAY ==
[2024-03-09 00:08] VITALS: BP 120/68; PULSE 68; RESP 18; TEMP 36.2
[2024-03-11 11:54] LABS: Abs Immature Grans 0.03 10^3/uL (0.0-0.06); Absolute Basophil Count 0.03 10^3/uL (0.0-0.2); Absolute Monocyte Count 0.65 10^3/uL (0.1-0.8); Absolute Neutrophil Count 0.93 10^3/uL (1.2-6.7); HCT 38.1 % (40.0-50.0); Lymphocytes % 46.1 %; MCH 34.9 pg (27.0-33.0); MCHC 34.1 % (32.0-36.0); MCV 102 fL (80-95); Monocytes % 21.4 %; Neutrophils % 30.5 %; Platelet Count 212 10^3/uL (130-400); RBC 3.73 10^6/uL (4.36-5.78); RDW 14.1 % (11.8-14.1); RDW-SD 53.5 fL; WBC 3.04 10^3/uL (4.4-10.8)
[2024-03-11 12:05] LABS: Diff Comment Agrees w/ Instrument; RBC Morphology Normal
[2024-03-16 11:26] LABS: Abs Immature Grans 0.04 10^3/uL (0.0-0.06); Absolute Basophil Count 0.08 10^3/uL (0.0-0.2); Absolute Eosinophil Count 0.01 10^3/uL (0.0-0.7); Absolute Lymphocyte Count 2.08 10^3/uL (1.2-3.4); Absolute Monocyte Count 0.79 10^3/uL (0.1-0.8); Absolute Neutrophil Count 2.27 10^3/uL (1.2-6.7); Basophils % 1.5 %; Eosinophils % 0.2 %; HCT 37.9 % (40.0-50.0); HGB 12.8 g/dL (13.5-17.5); Immature Grans % 0.8 %; Lymphocytes % 39.5 %; MCH 34.5 pg (27.0-33.0); MCHC 33.8 % (32.0-36.0); MCV 102 fL (80-95); MPV 11.8 fL (8.0-11.0); Platelet Count 136 10^3/uL (130-400); RBC 3.71 10^6/uL (4.36-5.78); RDW 14.1 % (11.8-14.1); RDW-SD 53.1 fL; WBC 5.27 10^3/uL (4.4-10.8)
[2024-04-01 11:26] LABS: Abs Immature Grans 0.02 10^3/uL (0.0-0.06); Absolute Basophil Count 0.02 10^3/uL (0.0-0.2); Absolute Eosinophil Count 0.01 10^3/uL (0.0-0.7); Absolute Monocyte Count 0.86 10^3/uL (0.1-0.8); Absolute Neutrophil Count 3.77 10^3/uL (1.2-6.7); Basophils % 0.3 %; Eosinophils % 0.2 %; HCT 39.7 % (40.0-50.0); HGB 13.4 g/dL (13.5-17.5); Immature Grans % 0.3 %; Lymphocytes % 24.3 %; MCH 33.5 pg (27.0-33.0); MCHC 33.8 % (32.0-36.0); MCV 99 fL (80-95); MPV 11.6 fL (8.0-11.0); Monocytes % 13.9 %; Platelet Count 165 10^3/uL (130-400); RDW 13.7 % (11.8-14.1); RDW-SD 50.6 fL; WBC 6.18 10^3/uL (4.4-10.8)
[2024-04-01 11:43] LABS: ALT 27 U/L (16-63); AST 13 U/L (15-37); Alkaline Phosphatase 102 U/L (46-116); Anion Gap 13.7 mmol/L (3-11); BUN 18 mg/dL (7-18); CO2 25.3 mmol/L (21.0-32.0); CREATININE 1.1 mg/dL (0.70-1.30); Calcium 10.1 mg/dL (8.5-10.1); Chloride 106 mmol/L (98-107); Estimated GFR 69.14 (mL/min/1.73m2); Glucose 174 mg/dL (74-106); Potassium 4.3 mmol/L (3.5-5.1); Sodium 145 mmol/L (136-145); Total Protein 7.5 g/dL (6.4-8.2)
== END 2024-04-08 23:59 | disposition home or self-care (01) ==
LOC: INF 01:55
PROVIDERS: PCP Internal Medicine; Visit Provider Nurse Practitioner Adult Health
DX: C92.00 Acute myeloblastic leukemia, not having achieved remission (principal)
CPT/HCPCS: 36415; 80053; 85025

== ENCOUNTER 2024-04-22 21:47 | Outpatient (REF) | payer MEDICARE, SELFPAY ==
[2024-04-22 20:37] LABS: Abs Immature Grans 0.02 10^3/uL (0.0-0.06); Absolute Basophil Count 0.01 10^3/uL (0.0-0.2); Absolute Eosinophil Count 0.02 10^3/uL (0.0-0.7); Absolute Lymphocyte Count 0.98 10^3/uL (1.2-3.4); Absolute Monocyte Count 0.23 10^3/uL (0.1-0.8); Absolute Neutrophil Count 3.79 10^3/uL (1.2-6.7); Basophils % 0.2 %; Eosinophils % 0.4 %; HCT 38.8 % (40.0-50.0); HGB 13.1 g/dL (13.5-17.5); Immature Grans % 0.4 %; Lymphocytes % 19.4 %; MCH 33.7 pg (27.0-33.0); MCHC 33.8 % (32.0-36.0); MCV 100 fL (80-95); MPV 11.1 fL (8.0-11.0); Monocytes % 4.6 %; Platelet Count 129 10^3/uL (130-400); RBC 3.89 10^6/uL (4.36-5.78); RDW 14.1 % (11.8-14.1); RDW-SD 51.2 fL; WBC 5.05 10^3/uL (4.4-10.8)
[2024-04-22 20:47] LABS: ALT 23 U/L (16-63); AST 16 U/L (15-37); Alkaline Phosphatase 114 U/L (46-116); Anion Gap 9.5 mmol/L (3-11); BUN 24 mg/dL (7-18); Bilirubin, Total 1.89 mg/dL (0.2-1.0); CO2 28.5 mmol/L (21.0-32.0); CREATININE 1.1 mg/dL (0.70-1.30); Calcium 10.1 mg/dL (8.5-10.1); Chloride 100 mmol/L (98-107); Estimated GFR 68.71 (mL/min/1.73m2); Glucose 159 mg/dL (74-106); Potassium 4.2 mmol/L (3.5-5.1); Sodium 138 mmol/L (136-145); Total Protein 7.5 g/dL (6.4-8.2)
[2024-04-22 21:26] LABS: Hemoglobin A1C 6.7 % (<5.7)
[2024-04-23 19:27] LABS: Parathyroid Hormone,Intact 21 pg/mL (19-88)
[2024-04-24 17:59] LABS: PSA, Ultrasensitive <0.01 ng/mL (<= 6.5)
== END 2024-04-22 21:48 | disposition home or self-care (01) ==
LOC: LBN 21:47
PROVIDERS: PCP Internal Medicine; Visit Provider Nurse Practitioner Adult Health
DX: C92.00 Acute myeloblastic leukemia, not having achieved remission (principal); C61 Malignant neoplasm of prostate; E11.9 Type 2 diabetes mellitus without complications
CPT/HCPCS: 80053; 84153; 82397; 83036; 83970; 85025

== ENCOUNTER 2024-05-06 02:42 | Outpatient (RCR) | payer MEDICARE, SELFPAY ==
[2024-04-09 00:27] VITALS: BP 120/68; PULSE 68; RESP 18; TEMP 36.2
[2024-04-13 12:26] LABS: Abs Immature Grans 0.07 10^3/uL (0.0-0.06); Absolute Basophil Count 0.04 10^3/uL (0.0-0.2); Absolute Eosinophil Count 0.01 10^3/uL (0.0-0.7); Absolute Monocyte Count 0.59 10^3/uL (0.1-0.8); Absolute Neutrophil Count 6.18 10^3/uL (1.2-6.7); Basophils % 0.5 %; Eosinophils % 0.1 %; HCT 37.9 % (40.0-50.0); HGB 13.1 g/dL (13.5-17.5); Immature Grans % 0.8 %; Lymphocytes % 21.6 %; MCH 33.7 pg (27.0-33.0); MCHC 34.6 % (32.0-36.0); MCV 97 fL (80-95); MPV 10.5 fL (8.0-11.0); Monocytes % 6.7 %; Neutrophils % 70.3 %; Platelet Count 164 10^3/uL (130-400); RBC 3.89 10^6/uL (4.36-5.78); RDW 13.7 % (11.8-14.1); RDW-SD 49.1 fL; WBC 8.79 10^3/uL (4.4-10.8)
[2024-04-13 12:45] LABS: ALT 22 U/L (16-63); AST 10 U/L (15-37); Albumin 3.9 g/dL (3.4-5.0); Alkaline Phosphatase 109 U/L (46-116); Anion Gap 10.8 mmol/L (3-11); BUN 25 mg/dL (7-18); Bilirubin, Total 0.85 mg/dL (0.2-1.0); CO2 27.2 mmol/L (21.0-32.0); CREATININE 1.1 mg/dL (0.70-1.30); Calcium 10.2 mg/dL (8.5-10.1); Chloride 102 mmol/L (98-107); Estimated GFR 69.14 (mL/min/1.73m2); Glucose 164 mg/dL (74-106); Potassium 4.1 mmol/L (3.5-5.1); Sodium 140 mmol/L (136-145); Total Protein 7.6 g/dL (6.4-8.2)
[2024-05-06 11:54] LABS: Absolute Basophil Count 0.04 10^3/uL (0.0-0.2); Absolute Lymphocyte Count 1.59 10^3/uL (1.2-3.4); Absolute Monocyte Count 0.25 10^3/uL (0.1-0.8); Absolute Neutrophil Count 0.52 10^3/uL (1.2-6.7); Basophils % 1.7 %; HCT 36.6 % (40.0-50.0); HGB 12.2 g/dL (13.5-17.5); Lymphocytes % 66.3 %; MCH 33.2 pg (27.0-33.0); MCHC 33.3 % (32.0-36.0); MCV 100 fL (80-95); MPV 10.1 fL (8.0-11.0); Monocytes % 10.4 %; Neutrophils % 21.6 %; Platelet Count 216 10^3/uL (130-400); RBC 3.67 10^6/uL (4.36-5.78); RDW 15.4 % (11.8-14.1); RDW-SD 55.7 fL
[2024-05-06 12:09] LABS: ALT 22 U/L (16-63); AST 12 U/L (15-37); Albumin 3.9 g/dL (3.4-5.0); Alkaline Phosphatase 98 U/L (46-116); Anion Gap 7.9 mmol/L (3-11); BUN 22 mg/dL (7-18); Bilirubin, Total 1.37 mg/dL (0.2-1.0); CO2 28.1 mmol/L (21.0-32.0); Calcium 9.7 mg/dL (8.5-10.1); Chloride 106 mmol/L (98-107); Estimated GFR 77.04 (mL/min/1.73m2); Glucose 147 mg/dL (74-106); Potassium 4.7 mmol/L (3.5-5.1); Sodium 142 mmol/L (136-145); Total Protein 7.1 g/dL (6.4-8.2)
[2024-05-06 12:20] LABS: Diff Comment Diff Reviewed; RBC Morphology Normal
== END 2024-05-09 23:59 | disposition home or self-care (01) ==
LOC: INF 02:42
PROVIDERS: PCP Internal Medicine; Visit Provider Nurse Practitioner Adult Health
DX: C92.00 Acute myeloblastic leukemia, not having achieved remission (principal); I25.10 Atherosclerotic heart disease of native coronary artery without angina pectoris
CPT/HCPCS: 36415; 80053; 85025

== ENCOUNTER 2024-05-06 12:54 | Outpatient (CLI) | payer MEDICARE, SELFPAY ==
[2024-05-13 15:06] LABS: PTH-Related Peptide 0.8 pmol/L (< or = 4.2)
== END 2024-05-06 12:55 | disposition home or self-care (01) ==
LOC: LBO 12:55
PROVIDERS: PCP Internal Medicine; Visit Provider Internal Medicine
DX: E11.9 Type 2 diabetes mellitus without complications (principal); E27.9 Disorder of adrenal gland, unspecified
CPT/HCPCS: 36415; 80053; 82397; 85025

== ENCOUNTER 2024-05-14 16:40 | Outpatient (REF) | payer MEDICARE, SELFPAY ==
[2024-05-14 19:44] LABS: Abs Immature Grans 0.04 10^3/uL (0.0-0.06); Absolute Basophil Count 0.03 10^3/uL (0.0-0.2); Absolute Eosinophil Count 0.01 10^3/uL (0.0-0.7); Absolute Lymphocyte Count 1.41 10^3/uL (1.2-3.4); Absolute Monocyte Count 0.73 10^3/uL (0.1-0.8); Basophils % 0.8 %; Eosinophils % 0.3 %; HCT 38.5 % (40.0-50.0); HGB 12.8 g/dL (13.5-17.5); Lymphocytes % 36.9 %; MCH 33.6 pg (27.0-33.0); MCHC 33.2 % (32.0-36.0); MCV 101 fL (80-95); MPV 11.2 fL (8.0-11.0); Monocytes % 19.1 %; Neutrophils % 41.9 %; Platelet Count 176 10^3/uL (130-400); RBC 3.81 10^6/uL (4.36-5.78); RDW 15.8 % (11.8-14.1); RDW-SD 58.4 fL; WBC 3.82 10^3/uL (4.4-10.8)
[2024-05-14 19:58] LABS: ALT 20 U/L (16-63); AST 20 U/L (15-37); Albumin 4.2 g/dL (3.4-5.0); Alkaline Phosphatase 107 U/L (46-116); Anion Gap 7.8 mmol/L (3-11); BUN 25 mg/dL (7-18); Bilirubin, Total 1.58 mg/dL (0.2-1.0); CO2 28.2 mmol/L (21.0-32.0); CREATININE 1.2 mg/dL (0.70-1.30); Calcium 10.2 mg/dL (8.5-10.1); Chloride 102 mmol/L (98-107); Glucose 171 mg/dL (74-106); Potassium 4.2 mmol/L (3.5-5.1); Sodium 138 mmol/L (136-145); Total Protein 7.5 g/dL (6.4-8.2)
[2024-05-15 13:58] LABS: GGT 38 U/L (15-85)
[2024-05-15 22:31] LABS: Unconjugated(Indirect) Bili 1.4 mg/dL (<=1.1)
== END 2024-05-14 16:41 | disposition home or self-care (01) ==
LOC: NCHCN 16:40
PROVIDERS: Nurse Practitioner Adult Health; PCP Internal Medicine; Visit Provider Internal Medicine
DX: C92.00 Acute myeloblastic leukemia, not having achieved remission (principal); K71.0 Toxic liver disease with cholestasis
CPT/HCPCS: 80053; 82248; 82977; 85025

== ENCOUNTER 2024-07-07 11:30 | Outpatient (RCR) | payer MEDICARE, SELFPAY ==
[2024-06-10 12:47] LABS: Abs Immature Grans 0.01 10^3/uL (0.0-0.06); Absolute Basophil Count 0.07 10^3/uL (0.0-0.2); Absolute Eosinophil Count 0.02 10^3/uL (0.0-0.7); Absolute Lymphocyte Count 1.42 10^3/uL (1.2-3.4); Absolute Monocyte Count 0.23 10^3/uL (0.1-0.8); Absolute Neutrophil Count 1.49 10^3/uL (1.2-6.7); Basophils % 2.2 %; Eosinophils % 0.6 %; HCT 37.1 % (40.0-50.0); HGB 12.8 g/dL (13.5-17.5); Immature Grans % 0.3 %; Lymphocytes % 43.8 %; MCH 33.8 pg (27.0-33.0); MCHC 34.5 % (32.0-36.0); MCV 98 fL (80-95); MPV 10.7 fL (8.0-11.0); Monocytes % 7.1 %; Platelet Count 191 10^3/uL (130-400); RBC 3.79 10^6/uL (4.36-5.78); RDW 15.9 % (11.8-14.1); RDW-SD 57.7 fL; WBC 3.24 10^3/uL (4.4-10.8)
[2024-06-10 13:08] LABS: ALT 21 U/L (16-63); AST 13 U/L (15-37); Albumin 3.8 g/dL (3.4-5.0); Alkaline Phosphatase 108 U/L (46-116); Anion Gap 10.2 mmol/L (3-11); BUN 21 mg/dL (7-18); Bilirubin, Total 0.87 mg/dL (0.2-1.0); CO2 22.8 mmol/L (21.0-32.0); CREATININE 1.1 mg/dL (0.70-1.30); Calcium 9.1 mg/dL (8.5-10.1); Chloride 102 mmol/L (98-107); Estimated GFR 68.71 (mL/min/1.73m2); Glucose 156 mg/dL (74-106); Potassium 3.7 mmol/L (3.5-5.1); Sodium 135 mmol/L (136-145); Total Protein 7.1 g/dL (6.4-8.2)
[2024-06-10 13:12] LABS: ALT 21 U/L (16-63); AST 18 U/L (15-37); Albumin 3.9 g/dL (3.4-5.0); Alkaline Phosphatase 111 U/L (46-116); Bilirubin, Total 0.84 mg/dL (0.2-1.0); Calculated LDL 34 mg/dL (<100); Cholesterol 144 mg/dL (<200); HDL Cholesterol 37 mg/dL (40-60); Total Protein 7.2 g/dL (6.4-8.2); Triglyceride 367 mg/dL (<150)
[2024-06-10 13:21] LABS: Bilirubin, Direct 0.2 mg/dL (0.0-0.2)
[2024-07-07 11:59] LABS: Absolute Basophil Count 0.05 10^3/uL (0.0-0.2); Absolute Eosinophil Count 0.05 10^3/uL (0.0-0.7); Absolute Lymphocyte Count 1.81 10^3/uL (1.2-3.4); Absolute Monocyte Count 0.31 10^3/uL (0.1-0.8); Absolute Neutrophil Count 1.12 10^3/uL (1.2-6.7); Basophils % 1.5 %; Eosinophils % 1.5 %; HCT 40.5 % (40.0-50.0); HGB 13.5 g/dL (13.5-17.5); Lymphocytes % 54.2 %; MCH 33.3 pg (27.0-33.0); MCHC 33.3 % (32.0-36.0); MCV 100 fL (80-95); MPV 10.6 fL (8.0-11.0); Monocytes % 9.3 %; Neutrophils % 33.5 %; Platelet Count 155 10^3/uL (130-400); RBC 4.05 10^6/uL (4.36-5.78); RDW 15.2 % (11.8-14.1); RDW-SD 56.2 fL; WBC 3.34 10^3/uL (4.4-10.8)
[2024-07-07 12:24] LABS: ALT 21 U/L (16-63); AST 13 U/L (15-37); Alkaline Phosphatase 110 U/L (46-116); Anion Gap 9.8 mmol/L (3-11); BUN 24 mg/dL (7-18); Bilirubin, Total 1.17 mg/dL (0.2-1.0); CO2 27.2 mmol/L (21.0-32.0); CREATININE 1.3 mg/dL (0.70-1.30); Calcium 9.7 mg/dL (8.5-10.1); Chloride 104 mmol/L (98-107); Estimated GFR 56.23 (mL/min/1.73m2); Glucose 146 mg/dL (74-106); Sodium 141 mmol/L (136-145); Total Protein 7.5 g/dL (6.4-8.2)
[2024-07-09 12:53] LABS: PSA, Ultrasensitive <0.01 ng/mL (<= 6.5)
== END 2024-07-09 23:59 | disposition home or self-care (01) ==
LOC: INF 11:30
PROVIDERS: Internal Medicine; Internal Medicine Interventional Cardiology; Nurse Practitioner Adult Health; PCP Internal Medicine; Visit Provider Internal Medicine
DX: C92.00 Acute myeloblastic leukemia, not having achieved remission (principal); C79.51 Secondary malignant neoplasm of bone; C61 Malignant neoplasm of prostate
CPT/HCPCS: 36415; 80053; 80061; 80076; 84153; 85025

== ENCOUNTER 2024-08-12 02:08 | Outpatient (RCR) | payer MEDICARE, SELFPAY ==
[2024-08-12 11:52] LABS: Abs Immature Grans 0.02 10^3/uL (0.0-0.06); Absolute Basophil Count 0.08 10^3/uL (0.0-0.2); Absolute Eosinophil Count 0.07 10^3/uL (0.0-0.7); Absolute Monocyte Count 0.65 10^3/uL (0.1-0.8); Absolute Neutrophil Count 1.57 10^3/uL (1.2-6.7); Eosinophils % 1.7 %; HCT 41.7 % (40.0-50.0); Immature Grans % 0.5 %; Lymphocytes % 41.6 %; MCH 32.3 pg (27.0-33.0); MCHC 33.6 % (32.0-36.0); MCV 96 fL (80-95); Monocytes % 15.9 %; Neutrophils % 38.3 %; Platelet Count 145 10^3/uL (130-400); RBC 4.33 10^6/uL (4.36-5.78); RDW-SD 50.1 fL; WBC 4.09 10^3/uL (4.4-10.8)
[2024-08-12 12:11] LABS: ALT 24 U/L (16-63); AST 22 U/L (15-37); Alkaline Phosphatase 134 U/L (46-116); BUN 20 mg/dL (7-18); Bilirubin, Total 1.54 mg/dL (0.2-1.0); CREATININE 1.3 mg/dL (0.70-1.30); Calcium 10.1 mg/dL (8.5-10.1); Chloride 104 mmol/L (98-107); Estimated GFR 56.23 (mL/min/1.73m2); Glucose 137 mg/dL (74-106); Potassium 4.4 mmol/L (3.5-5.1); Sodium 141 mmol/L (136-145); Total Protein 7.4 g/dL (6.4-8.2)
== END 2024-09-08 23:59 | disposition home or self-care (01) ==
LOC: INF 02:08
PROVIDERS: Nurse Practitioner Adult Health; PCP Internal Medicine; Visit Provider Internal Medicine
DX: C92.00 Acute myeloblastic leukemia, not having achieved remission (principal)
CPT/HCPCS: 36415; 80053; 85025

== ENCOUNTER 2024-09-16 03:42 | Outpatient (RCR) | payer MEDICARE, SELFPAY ==
[2024-09-16 11:01] LABS: Abs Immature Grans 0.05 10^3/uL (0.0-0.06); Absolute Basophil Count 0.09 10^3/uL (0.0-0.2); Absolute Eosinophil Count 0.03 10^3/uL (0.0-0.7); Absolute Lymphocyte Count 1.63 10^3/uL (1.2-3.4); Absolute Monocyte Count 0.61 10^3/uL (0.1-0.8); Absolute Neutrophil Count 2.41 10^3/uL (1.2-6.7); Basophils % 1.9 %; Eosinophils % 0.6 %; HCT 42.4 % (40.0-50.0); Lymphocytes % 33.8 %; MCH 32.2 pg (27.0-33.0); MCV 98 fL (80-95); MPV 10.6 fL (8.0-11.0); Monocytes % 12.7 %; Platelet Count 150 10^3/uL (130-400); RBC 4.35 10^6/uL (4.36-5.78); RDW 14.9 % (11.8-14.1); RDW-SD 53.8 fL; WBC 4.82 10^3/uL (4.4-10.8)
[2024-09-16 11:17] LABS: ALT 17 U/L (16-63); AST 14 U/L (15-37); Albumin 4.1 g/dL (3.4-5.0); Alkaline Phosphatase 125 U/L (46-116); Anion Gap 10.8 mmol/L (3-11); BUN 20 mg/dL (7-18); Bilirubin, Total 1.34 mg/dL (0.2-1.0); CO2 28.2 mmol/L (21.0-32.0); CREATININE 1.2 mg/dL (0.70-1.30); Chloride 103 mmol/L (98-107); Glucose 173 mg/dL (74-106); Potassium 4.1 mmol/L (3.5-5.1); Sodium 142 mmol/L (136-145); Total Protein 7.7 g/dL (6.4-8.2)
== END 2024-10-09 23:59 | disposition home or self-care (01) ==
LOC: INF 03:42
PROVIDERS: Nurse Practitioner Adult Health; PCP Internal Medicine; Visit Provider Internal Medicine
DX: C92.00 Acute myeloblastic leukemia, not having achieved remission (principal)
CPT/HCPCS: 36415; 80053; 85025

== ENCOUNTER 2024-10-14 00:46 | Outpatient (RCR) | payer MEDICARE, SELFPAY ==
[2024-10-14 10:26] LABS: Abs Immature Grans 0.02 10^3/uL (0.0-0.06); Absolute Eosinophil Count 0.03 10^3/uL (0.0-0.7); Absolute Lymphocyte Count 1.47 10^3/uL (1.2-3.4); Absolute Monocyte Count 0.32 10^3/uL (0.1-0.8); Absolute Neutrophil Count 1.58 10^3/uL (1.2-6.7); Basophils % 2.8 %; Eosinophils % 0.9 %; HGB 13.2 g/dL (13.5-17.5); Immature Grans % 0.6 %; Lymphocytes % 41.8 %; MCH 32.4 pg (27.0-33.0); MCV 98 fL (80-95); MPV 10.2 fL (8.0-11.0); Monocytes % 9.1 %; Neutrophils % 44.8 %; Platelet Count 173 10^3/uL (130-400); RBC 4.08 10^6/uL (4.36-5.78); RDW 15.5 % (11.8-14.1); RDW-SD 55.8 fL; WBC 3.52 10^3/uL (4.4-10.8)
[2024-10-14 10:48] LABS: ALT 22 U/L (16-63); AST 12 U/L (15-37); Albumin 3.9 g/dL (3.4-5.0); Alkaline Phosphatase 123 U/L (46-116); Anion Gap 10.5 mmol/L (3-11); BUN 23 mg/dL (7-18); Bilirubin, Total 1.07 mg/dL (0.2-1.0); CO2 28.5 mmol/L (21.0-32.0); CREATININE 1.1 mg/dL (0.70-1.30); Chloride 105 mmol/L (98-107); Estimated GFR 68.71 (mL/min/1.73m2); Glucose 159 mg/dL (74-106); Potassium 4.2 mmol/L (3.5-5.1); Sodium 144 mmol/L (136-145); Total Protein 7.3 g/dL (6.4-8.2)
== END 2024-11-06 23:59 | disposition home or self-care (01) ==
LOC: INF 00:46
PROVIDERS: PCP Internal Medicine; Visit Provider Internal Medicine
DX: C92.00 Acute myeloblastic leukemia, not having achieved remission (principal)
CPT/HCPCS: 36415; 80053; 85025

== ENCOUNTER 2024-10-23 15:54 | Outpatient (CLI) | payer MEDICARE, SELFPAY ==
[2024-10-28 13:18] LABS: PSA, Ultrasensitive <0.01 ng/mL (<= 6.5)
== END 2024-10-23 15:55 | disposition home or self-care (01) ==
LOC: LBO 15:56
PROVIDERS: PCP Internal Medicine; Visit Provider Internal Medicine
DX: C61 Malignant neoplasm of prostate (principal); C79.51 Secondary malignant neoplasm of bone
CPT/HCPCS: 36415; 84153

== ENCOUNTER 2024-11-11 07:17 | Outpatient (RCR) | payer MEDICARE, SELFPAY ==
[2024-11-11 13:44] LABS: Abs Immature Grans 0.02 10^3/uL (0.0-0.06); Absolute Basophil Count 0.05 10^3/uL (0.0-0.2); Absolute Lymphocyte Count 1.24 10^3/uL (1.2-3.4); Absolute Monocyte Count 0.26 10^3/uL (0.1-0.8); Absolute Neutrophil Count 2.11 10^3/uL (1.2-6.7); Basophils % 1.4 %; HCT 41.4 % (40.0-50.0); HGB 13.7 g/dL (13.5-17.5); Immature Grans % 0.5 %; Lymphocytes % 33.7 %; MCH 32.5 pg (27.0-33.0); MCHC 33.1 % (32.0-36.0); MCV 98 fL (80-95); MPV 10.4 fL (8.0-11.0); Monocytes % 7.1 %; Neutrophils % 57.3 %; Platelet Count 158 10^3/uL (130-400); RBC 4.21 10^6/uL (4.36-5.78); RDW 15.6 % (11.8-14.1); RDW-SD 56.3 fL; WBC 3.68 10^3/uL (4.4-10.8)
[2024-11-11 14:30] LABS: ALT 19 U/L (16-63); AST 12 U/L (15-37); Alkaline Phosphatase 108 U/L (46-116); Anion Gap 10.7 mmol/L (3-11); BUN 25 mg/dL (7-18); Bilirubin, Total 1.13 mg/dL (0.2-1.0); CO2 26.3 mmol/L (21.0-32.0); CREATININE 1.3 mg/dL (0.70-1.30); Calcium 9.6 mg/dL (8.5-10.1); Chloride 105 mmol/L (98-107); Estimated GFR 56.23 (mL/min/1.73m2); Glucose 227 mg/dL (74-106); Potassium 4.5 mmol/L (3.5-5.1); Sodium 142 mmol/L (136-145); Total Protein 7.3 g/dL (6.4-8.2)
== END 2024-12-07 23:59 | disposition home or self-care (01) ==
LOC: INF 07:17
PROVIDERS: Nurse Practitioner Adult Health; PCP Internal Medicine; Visit Provider Internal Medicine
DX: C92.00 Acute myeloblastic leukemia, not having achieved remission (principal)
CPT/HCPCS: 36415; 80053; 85025

== ENCOUNTER 2025-01-06 01:20 | Outpatient (RCR) | payer MEDICARE, SELFPAY ==
[2024-12-09 11:35] LABS: Abs Immature Grans 0.01 10^3/uL (0.0-0.06); Absolute Basophil Count 0.07 10^3/uL (0.0-0.2); Absolute Eosinophil Count 0.13 10^3/uL (0.0-0.7); Absolute Lymphocyte Count 1.91 10^3/uL (1.2-3.4); Absolute Neutrophil Count 1.21 10^3/uL (1.2-6.7); Basophils % 1.9 %; Eosinophils % 3.6 %; HCT 39.4 % (40.0-50.0); HGB 13.2 g/dL (13.5-17.5); Immature Grans % 0.3 %; Lymphocytes % 52.6 %; MCH 32.6 pg (27.0-33.0); MCHC 33.5 % (32.0-36.0); MCV 97 fL (80-95); MPV 10.1 fL (8.0-11.0); Monocytes % 8.3 %; Neutrophils % 33.3 %; Platelet Count 155 10^3/uL (130-400); RBC 4.05 10^6/uL (4.36-5.78); RDW 15.5 % (11.8-14.1); RDW-SD 56.5 fL; WBC 3.63 10^3/uL (4.4-10.8)
[2024-12-09 11:56] LABS: ALT 23 U/L (16-63); AST 12 U/L (15-37); Albumin 3.8 g/dL (3.4-5.0); Alkaline Phosphatase 102 U/L (46-116); BUN 29 mg/dL (7-18); Calcium 9.6 mg/dL (8.5-10.1); Chloride 105 mmol/L (98-107); Estimated GFR 77.04 (mL/min/1.73m2); Glucose 148 mg/dL (74-106); Potassium 4.1 mmol/L (3.5-5.1); Sodium 142 mmol/L (136-145)
[2025-01-06 12:43] LABS: Absolute Basophil Count 0.06 10^3/uL (0.0-0.2); Absolute Lymphocyte Count 1.73 10^3/uL (1.2-3.4); Absolute Monocyte Count 0.23 10^3/uL (0.1-0.8); Absolute Neutrophil Count 0.92 10^3/uL (1.2-6.7); HGB 12.9 g/dL (13.5-17.5); Lymphocytes % 58.8 %; MCH 33.2 pg (27.0-33.0); MCHC 33.1 % (32.0-36.0); MCV 100 fL (80-95); MPV 10.3 fL (8.0-11.0); Monocytes % 7.8 %; Neutrophils % 31.4 %; Platelet Count 137 10^3/uL (130-400); RBC 3.89 10^6/uL (4.36-5.78); RDW 15.6 % (11.8-14.1); RDW-SD 57.1 fL; WBC 2.94 10^3/uL (4.4-10.8)
[2025-01-06 13:01] LABS: ALT 23 U/L (16-63); AST 16 U/L (15-37); Albumin 4.1 g/dL (3.4-5.0); Alkaline Phosphatase 97 U/L (46-116); Anion Gap 10.7 mmol/L (3-11); BUN 25 mg/dL (7-18); Bilirubin, Total 1.2 mg/dL (0.2-1.0); CO2 27.3 mmol/L (21.0-32.0); CREATININE 1.2 mg/dL (0.70-1.30); Calcium 9.9 mg/dL (8.5-10.1); Chloride 108 mmol/L (98-107); Glucose 155 mg/dL (74-106); Potassium 4.4 mmol/L (3.5-5.1); Sodium 146 mmol/L (136-145); Total Protein 7.3 g/dL (6.4-8.2)
[2025-01-06 13:02] LABS: Diff Comment Diff Reviewed; RBC Morphology Normal
[2025-01-07 09:46] LABS: Measles IgG Antibody Positive (See Note)
== END 2025-01-06 23:59 | disposition home or self-care (01) ==
LOC: INF 01:20
PROVIDERS: Nurse Practitioner Adult Health; PCP Internal Medicine; Visit Provider Internal Medicine
DX: C92.00 Acute myeloblastic leukemia, not having achieved remission (principal); Z71.84 Encounter for health counseling related to travel
CPT/HCPCS: 36415; 80053; 85025; 86765

== ENCOUNTER 2025-01-11 13:03 | Outpatient (REF) | payer MEDICARE, SELFPAY ==
[2025-01-11 19:31] LABS: Absolute Basophil Count 0.08 10^3/uL (0.0-0.2); Absolute Eosinophil Count 0.01 10^3/uL (0.0-0.7); Absolute Lymphocyte Count 1.64 10^3/uL (1.2-3.4); Absolute Monocyte Count 0.56 10^3/uL (0.1-0.8); Absolute Neutrophil Count 1.07 10^3/uL (1.2-6.7); Basophils % 2.4 %; Eosinophils % 0.3 %; HCT 38.2 % (40.0-50.0); HGB 12.6 g/dL (13.5-17.5); Lymphocytes % 48.8 %; MCH 32.1 pg (27.0-33.0); MCV 97 fL (80-95); MPV 10.8 fL (8.0-11.0); Monocytes % 16.7 %; Neutrophils % 31.8 %; Platelet Count 158 10^3/uL (130-400); RBC 3.93 10^6/uL (4.36-5.78); RDW 15.4 % (11.8-14.1); RDW-SD 55.3 fL; WBC 3.36 10^3/uL (4.4-10.8)
== END 2025-01-11 13:04 | disposition home or self-care (01) ==
LOC: NCHCN 13:03
PROVIDERS: PCP Internal Medicine; Visit Provider Internal Medicine
DX: C92.00 Acute myeloblastic leukemia, not having achieved remission (principal)
CPT/HCPCS: 85025

== ENCOUNTER 2025-02-17 11:36 | Outpatient (RCR) | payer MEDICARE, SELFPAY ==
[2025-02-17 11:52] LABS: Abs Immature Grans 0.02 10^3/uL (0.0-0.06); Absolute Basophil Count 0.09 10^3/uL (0.0-0.2); Absolute Eosinophil Count 0.01 10^3/uL (0.0-0.7); Absolute Lymphocyte Count 2.05 10^3/uL (1.2-3.4); Absolute Monocyte Count 0.88 10^3/uL (0.1-0.8); Absolute Neutrophil Count 2.31 10^3/uL (1.2-6.7); Basophils % 1.7 %; Eosinophils % 0.2 %; HCT 38.4 % (40.0-50.0); HGB 12.9 g/dL (13.5-17.5); Immature Grans % 0.4 %; Lymphocytes % 38.2 %; MCH 32.8 pg (27.0-33.0); MCHC 33.6 % (32.0-36.0); MCV 98 fL (80-95); MPV 10.5 fL (8.0-11.0); Monocytes % 16.4 %; Neutrophils % 43.1 %; Platelet Count 152 10^3/uL (130-400); RBC 3.93 10^6/uL (4.36-5.78); RDW 15.4 % (11.8-14.1); RDW-SD 55.7 fL; WBC 5.36 10^3/uL (4.4-10.8)
[2025-02-17 12:16] LABS: ALT 26 U/L (16-63); AST 14 U/L (15-37); Albumin 3.9 g/dL (3.4-5.0); Alkaline Phosphatase 111 U/L (46-116); Anion Gap 10.6 mmol/L (3-11); BUN 23 mg/dL (7-18); CO2 27.4 mmol/L (21.0-32.0); CREATININE 1.2 mg/dL (0.70-1.30); Calcium 9.2 mg/dL (8.5-10.1); Chloride 101 mmol/L (98-107); Glucose 155 mg/dL (74-106); Sodium 139 mmol/L (136-145); Total Protein 7.1 g/dL (6.4-8.2)
== END 2025-03-08 23:59 | disposition home or self-care (01) ==
LOC: INF 11:36
PROVIDERS: Nurse Practitioner Adult Health; PCP Internal Medicine; Visit Provider Internal Medicine
DX: C92.00 Acute myeloblastic leukemia, not having achieved remission (principal)
CPT/HCPCS: 36415; 80053; 85025

== ENCOUNTER 2025-03-24 02:30 | Outpatient (RCR) | payer MEDICARE, SELFPAY ==
[2025-03-24 09:44] LABS: Abs Immature Grans 0.02 10^3/uL (0.0-0.06); HCT 38.8 % (40.0-50.0); HGB 13.2 g/dL (13.5-17.5); Immature Grans % 0.4 %; MCH 33.6 pg (27.0-33.0); MCHC 34.0 % (32.0-36.0); MCV 99 fL (80-95); MPV 10.6 fL (8.0-11.0); Platelet Count 139 10^3/uL (130-400); RBC 3.93 10^6/uL (4.36-5.78); RDW 15.2 % (11.8-14.1); RDW-SD 55.5 fL; WBC 5.14 10^3/uL (4.4-10.8)
[2025-03-24 10:03] LABS: Cholesterol 175 mg/dL (<200); HDL Cholesterol 37 mg/dL (>or=40); Triglyceride 536 mg/dL (<150)
[2025-03-24 10:14] LABS: LDL CHOLESTEROL 74 mg/dL (<100)
[2025-03-24 10:15] LABS: ALT 27 U/L (16-63); AST 16 U/L (15-37); Albumin 4.1 g/dL (3.4-5.0); Alkaline Phosphatase 121 U/L (46-116); Anion Gap 13.1 mmol/L (3-11); BUN 23 mg/dL (7-18); Bilirubin, Total 1.2 mg/dL (0.2-1.0); CO2 27.9 mmol/L (21.0-32.0); Calcium 9.5 mg/dL (8.5-10.1); Chloride 99 mmol/L (98-107); Estimated GFR 77.04 (mL/min/1.73m2); Glucose 131 mg/dL (74-106); Potassium 3.4 mmol/L (3.5-5.1); Sodium 140 mmol/L (136-145); Total Protein 7.4 g/dL (6.4-8.2)
== END 2025-04-08 23:59 | disposition home or self-care (01) ==
LOC: INF 02:30
PROVIDERS: Internal Medicine Interventional Cardiology; Nurse Practitioner; Nurse Practitioner Adult Health; PCP Internal Medicine; Visit Provider Internal Medicine Hematology & Oncology
DX: C92.00 Acute myeloblastic leukemia, not having achieved remission (principal); C61 Malignant neoplasm of prostate; I25.10 Atherosclerotic heart disease of native coronary artery without angina pectoris
CPT/HCPCS: 36415; 80053; 80061; 83721; 84153; 84403; 85025

== ENCOUNTER 2025-06-07 03:50 | Outpatient (RCR) | payer MEDICARE, SELFPAY ==
[2025-05-19 10:02] LABS: Abs Immature Grans 0.00 10^3/uL (0.0-0.06); HCT 28.7 % (40.0-50.0); HGB 9.6 g/dL (13.5-17.5); Immature Grans % 0.0 %; MCH 34.0 pg (27.0-33.0); MCHC 33.4 % (32.0-36.0); MCV 102 fL (80-95); RBC 2.82 10^6/uL (4.36-5.78); RDW 17.1 % (11.8-14.1); RDW-SD 63.1 fL
[2025-05-19 10:17] LABS: RBC Morphology Normal
[2025-05-19 10:20] LABS: WBC 1.81 10^3/uL (4.4-10.8)
[2025-05-19 10:21] LABS: Platelet Count 10 10^3/uL (130-400)
[2025-05-19 10:26] LABS: ALT 19 U/L (16-63); AST 13 U/L (15-37); Albumin 3.7 g/dL (3.4-5.0); Alkaline Phosphatase 100 U/L (46-116); Anion Gap 9.8 mmol/L (3-11); BUN 17 mg/dL (7-18); Bilirubin, Total 1.0 mg/dL (0.2-1.0); CO2 27.2 mmol/L (21.0-32.0); Calcium 9.2 mg/dL (8.5-10.1); Chloride 107 mmol/L (98-107); Estimated GFR 86.88 (mL/min/1.73m2); Glucose 139 mg/dL (74-106); Potassium 3.8 mmol/L (3.5-5.1); Sodium 144 mmol/L (136-145); Total Protein 6.6 g/dL (6.4-8.2)
[2025-05-19] MEDS: Normal Saline Flush 10 ML SYR IVP (11:31)
[2025-05-19 15:00] VITALS: BP 127/67; PULSE 57; RESP 19; TEMP 36.3; O2SAT 97
[2025-05-19 15:21] VITALS: BP 110/66; PULSE 64; RESP 18; TEMP 36.3; O2SAT 97
[2025-05-21 08:35] LABS: Abs Immature Grans 0.00 10^3/uL (0.0-0.06); HCT 25.9 % (40.0-50.0); HGB 8.7 g/dL (13.5-17.5); Immature Grans % 0.0 %; MCH 34.0 pg (27.0-33.0); MCHC 33.6 % (32.0-36.0); MCV 101 fL (80-95); MPV 13.3 fL (8.0-11.0); RBC 2.56 10^6/uL (4.36-5.78); RDW 17.1 % (11.8-14.1); RDW-SD 62.6 fL
[2025-05-21 09:01] LABS: Anisocytosis 2+
[2025-05-21 09:07] LABS: WBC 1.44 10^3/uL (4.4-10.8)
[2025-05-21 09:08] LABS: Platelet Count 14 10^3/uL (130-400)
[2025-05-21 13:39] VITALS: BP 111/66; PULSE 71; RESP 18; TEMP 36.4; O2SAT 99
[2025-05-21 13:55] VITALS: BP 117/70; PULSE 64; RESP 17; TEMP 36.4; O2SAT 99
[2025-05-21] MEDS: Normal Saline Flush 10 ML SYR IVP (14:26)
[2025-05-24] MEDS: Normal Saline Flush 10 ML SYR IVP (08:11)
[2025-05-24 08:34] LABS: Abs Immature Grans 0.01 10^3/uL (0.0-0.06); HCT 26.1 % (40.0-50.0); HGB 8.7 g/dL (13.5-17.5); Immature Grans % 0.5 %; MCH 33.3 pg (27.0-33.0); MCHC 33.3 % (32.0-36.0); MCV 100 fL (80-95); RBC 2.61 10^6/uL (4.36-5.78); RDW 17.3 % (11.8-14.1); RDW-SD 62.4 fL
[2025-05-24 09:28] LABS: WBC 1.86 10^3/uL (4.4-10.8)
[2025-05-24 09:31] LABS: Platelet Count 9 10^3/uL (130-400)
[2025-05-24 12:48] VITALS: BP 119/72; PULSE 82; RESP 18; TEMP 36.5; O2SAT 97
[2025-05-24 13:04] VITALS: BP 128/71; PULSE 82; RESP 18; TEMP 36.6; O2SAT 97
[2025-05-27] MEDS: Normal Saline Flush 10 ML SYR IVP (08:11)
[2025-05-27 08:32] LABS: Abs Immature Grans 0.01 10^3/uL (0.0-0.06); HCT 25.3 % (40.0-50.0); HGB 8.8 g/dL (13.5-17.5); Immature Grans % 0.5 %; MCH 34.5 pg (27.0-33.0); MCHC 34.8 % (32.0-36.0); MCV 99 fL (80-95); RBC 2.55 10^6/uL (4.36-5.78); RDW 17.3 % (11.8-14.1); RDW-SD 62.3 fL; WBC 2.05 10^3/uL (4.4-10.8)
[2025-05-27 08:52] LABS: Anisocytosis 2+
[2025-05-27 08:53] LABS: Schistocytes 1+; Tear Drop Cells 2+
[2025-05-27 09:01] LABS: Platelet Count 11 10^3/uL (130-400)
[2025-05-27 13:10] VITALS: BP 112/69; PULSE 77; RESP 18; TEMP 36.4; O2SAT 97
[2025-05-27 13:35] VITALS: BP 108/64; PULSE 74; RESP 18; TEMP 36; O2SAT 99
[2025-05-31] VITALS (7 sets, daily range): BP systolic 120–149; BP diastolic 72–80; PULSE 67–82; RESP 18; TEMP 36.5–36.9; O2SAT 97–99
[2025-05-31 08:20] LABS: Abs Immature Grans 0.00 10^3/uL (0.0-0.06); HCT 23.4 % (40.0-50.0); HGB 7.9 g/dL (13.5-17.5); Immature Grans % 0.0 %; MCH 33.8 pg (27.0-33.0); MCHC 33.8 % (32.0-36.0); MCV 100 fL (80-95); RBC 2.34 10^6/uL (4.36-5.78); RDW 17.5 % (11.8-14.1); RDW-SD 64.0 fL; WBC 2.34 10^3/uL (4.4-10.8)
[2025-05-31 08:40] LABS: Anisocytosis 2+
[2025-05-31 08:41] LABS: Macrocytosis 1+; Microcytosis 1+
[2025-05-31 08:42] LABS: Spherocytes 1+
[2025-05-31 08:46] LABS: Platelet Count 8 10^3/uL (130-400)
[2025-06-03] VITALS (8 sets, daily range): BP systolic 131–162; BP diastolic 65–87; PULSE 64–89; RESP 16–20; TEMP 36.3–36.7; O2SAT 94–98
[2025-06-03] MEDS: Normal Saline Flush 10 ML SYR IVP ×2 (08:14→13:00)
[2025-06-03 08:24] LABS: Abs Immature Grans 0.00 10^3/uL (0.0-0.06); HCT 22.2 % (40.0-50.0); HGB 7.9 g/dL (13.5-17.5); Immature Grans % 0.0 %; MCH 35.1 pg (27.0-33.0); MCHC 35.6 % (32.0-36.0); MCV 99 fL (80-95); RBC 2.25 10^6/uL (4.36-5.78); RDW 16.4 % (11.8-14.1); RDW-SD 58.3 fL
[2025-06-03 08:55] LABS: Platelet Count 5 10^3/uL (130-400); WBC 1.91 10^3/uL (4.4-10.8)
[2025-06-03 08:56] LABS: RBC Morphology Normal
[2025-06-07] MEDS: Normal Saline Flush 10 ML SYR IVP (08:15)
[2025-06-07 12:44] VITALS: BP 126/73; PULSE 74; RESP 18; TEMP 36.8; O2SAT 98
== END 2025-06-08 23:59 | disposition home or self-care (01) ==
LOC: INF 03:50
PROVIDERS: Nurse Practitioner Adult Health; PCP Internal Medicine; Visit Provider Internal Medicine Hematology & Oncology
DX: C92.00 Acute myeloblastic leukemia, not having achieved remission (principal); C61 Malignant neoplasm of prostate; I25.10 Atherosclerotic heart disease of native coronary artery without angina pectoris
CPT/HCPCS: 36415; 36430; 80053; 84153; 86850; 86900; 86901; 86920; 85025; P9016; P9035

== ENCOUNTER 2025-07-08 00:02 | Outpatient (RCR) | payer MEDICARE, SELFPAY ==
[2025-06-07 08:40] LABS: Abs Immature Grans 0.00 10^3/uL (0.0-0.06); HCT 23.7 % (40.0-50.0); HGB 8.4 g/dL (13.5-17.5); Immature Grans % 0.0 %; MCH 34.0 pg (27.0-33.0); MCHC 35.4 % (32.0-36.0); MCV 96 fL (80-95); RBC 2.47 10^6/uL (4.36-5.78); RDW 15.6 % (11.8-14.1); RDW-SD 54.1 fL
[2025-06-07 09:39] LABS: WBC 1.44 10^3/uL (4.4-10.8)
[2025-06-07 09:45] LABS: Platelet Count 6 10^3/uL (130-400)
[2025-06-07 09:46] LABS: RBC Morphology Normal
[2025-06-10] MEDS: Normal Saline Flush 10 ML SYR IVP (08:09)
[2025-06-10 08:50] LABS: Abs Immature Grans 0.00 10^3/uL (0.0-0.06); HCT 24.5 % (40.0-50.0); HGB 8.4 g/dL (13.5-17.5); Immature Grans % 0.0 %; MCH 33.5 pg (27.0-33.0); MCHC 34.3 % (32.0-36.0); MCV 98 fL (80-95); RBC 2.51 10^6/uL (4.36-5.78); RDW 15.9 % (11.8-14.1); RDW-SD 55.8 fL; WBC 2.18 10^3/uL (4.4-10.8)
[2025-06-10 09:12] LABS: RBC Morphology Normal
[2025-06-10 09:15] LABS: Platelet Count 7 10^3/uL (130-400)
[2025-06-10 13:39] VITALS: BP 111/66; PULSE 74; RESP 18; TEMP 36.8; O2SAT 95
[2025-06-10 14:25] VITALS: BP 126/69; PULSE 78; RESP 18; TEMP 36.6; O2SAT 97
[2025-06-14] VITALS (7 sets, daily range): BP systolic 91–117; BP diastolic 47–65; PULSE 55–66; RESP 17–18; TEMP 36–36.4; O2SAT 94–100
[2025-06-14] MEDS: Normal Saline Flush 10 ML SYR IVP (08:13)
[2025-06-14 08:33] LABS: Abs Immature Grans 0.00 10^3/uL (0.0-0.06); HCT 22.2 % (40.0-50.0); HGB 8.0 g/dL (13.5-17.5); Immature Grans % 0.0 %; MCH 35.1 pg (27.0-33.0); MCHC 36.0 % (32.0-36.0); MCV 97 fL (80-95); RBC 2.28 10^6/uL (4.36-5.78); RDW 15.8 % (11.8-14.1); RDW-SD 55.1 fL
[2025-06-14 09:02] LABS: Anisocytosis 2+; Microcytosis 1+; Polychromasia Present
[2025-06-14 09:05] LABS: WBC 1.93 10^3/uL (4.4-10.8)
[2025-06-14 09:06] LABS: Platelet Count 5 10^3/uL (130-400)
[2025-06-17 08:46] LABS: Abs Immature Grans 0.00 10^3/uL (0.0-0.06); HCT 23.2 % (40.0-50.0); HGB 8.1 g/dL (13.5-17.5); Immature Grans % 0.0 %; MCH 33.6 pg (27.0-33.0); MCHC 34.9 % (32.0-36.0); MCV 96 fL (80-95); RBC 2.41 10^6/uL (4.36-5.78); RDW 15.1 % (11.8-14.1); RDW-SD 51.9 fL; WBC 2.14 10^3/uL (4.4-10.8)
[2025-06-17 09:24] LABS: RBC Morphology Normal
[2025-06-17 09:25] LABS: Platelet Count 7 10^3/uL (130-400)
[2025-06-17] MEDS: Normal Saline Flush 10 ML SYR IVP (10:07)
[2025-06-17 13:18] VITALS: BP 146/73; PULSE 82; RESP 18; TEMP 35.7; O2SAT 99
[2025-06-17 14:00] VITALS: BP 127/65; PULSE 71; RESP 18; TEMP 36.1; O2SAT 99
[2025-06-21] VITALS (13 sets, daily range): BP systolic 119–145; BP diastolic 68–83; PULSE 71–83; RESP 18–22; TEMP 35.9–36.3; O2SAT 95–100
[2025-06-21 08:58] LABS: Abs Immature Grans 0.00 10^3/uL (0.0-0.06); Immature Grans % 0.0 %; MCH 33.3 pg (27.0-33.0); MCHC 34.9 % (32.0-36.0); MCV 96 fL (80-95); RBC 2.04 10^6/uL (4.36-5.78); RDW 14.7 % (11.8-14.1); RDW-SD 50.8 fL
[2025-06-21] MEDS: Normal Saline Flush 10 ML SYR IVP (09:00)
[2025-06-21 09:35] LABS: Anisocytosis 1+; Microcytosis 1+; Polychromasia Present
[2025-06-21 09:44] LABS: WBC 1.12 10^3/uL (4.4-10.8)
[2025-06-21 09:45] LABS: HCT 19.5 % (40.0-50.0); HGB 6.8 g/dL (13.5-17.5); Platelet Count 3 10^3/uL (130-400)
[2025-06-24] MEDS: Normal Saline Flush 10 ML SYR IVP (08:00)
[2025-06-24 08:12] LABS: Abs Immature Grans 0.00 10^3/uL (0.0-0.06); HCT 25.6 % (40.0-50.0); Immature Grans % 0.0 %; MCH 33.1 pg (27.0-33.0); MCHC 35.9 % (32.0-36.0); RBC 2.78 10^6/uL (4.36-5.78); RDW 14.7 % (11.8-14.1); RDW-SD 48.6 fL
[2025-06-24 08:22] LABS: HGB 9.2 g/dL (13.5-17.5)
[2025-06-24 08:23] LABS: MCV 92 fL (80-95)
[2025-06-24 08:37] LABS: Anisocytosis 2+
[2025-06-24 08:38] LABS: Microcytosis 1+; Polychromasia Present
[2025-06-24 08:40] LABS: WBC 1.70 10^3/uL (4.4-10.8)
[2025-06-24 08:42] LABS: Platelet Count 4 10^3/uL (130-400)
[2025-06-24 13:18] VITALS: BP 128/72; PULSE 83; RESP 18; TEMP 36; O2SAT 99
[2025-06-24 14:07] VITALS: BP 128/75; PULSE 73; RESP 18; TEMP 36.6; O2SAT 99
[2025-06-28 08:52] LABS: Abs Immature Grans 0.01 10^3/uL (0.0-0.06); HCT 22.8 % (40.0-50.0); HGB 8.3 g/dL (13.5-17.5); MCH 33.5 pg (27.0-33.0); MCHC 36.4 % (32.0-36.0); MCV 92 fL (80-95); RBC 2.48 10^6/uL (4.36-5.78); RDW 14.6 % (11.8-14.1); RDW-SD 48.1 fL
[2025-06-28] MEDS: Normal Saline Flush 10 ML SYR IVP (08:53)
[2025-06-28 09:33] LABS: Immature Grans % 0.0 %
[2025-06-28 09:35] LABS: Acanthocytes 1+
[2025-06-28 09:41] LABS: WBC 1.19 10^3/uL (4.4-10.8)
[2025-06-28 09:42] LABS: Platelet Count 2 10^3/uL (130-400)
[2025-06-28 14:02] VITALS: BP 108/60; PULSE 80; RESP 18; TEMP 36.4; O2SAT 97
[2025-06-28 14:18] VITALS: BP 105/60; PULSE 71; RESP 18; TEMP 36.4; O2SAT 98
[2025-07-01] VITALS (7 sets, daily range): BP systolic 99–122; BP diastolic 59–70; PULSE 63–74; RESP 18; TEMP 36–36.4; O2SAT 96–99
[2025-07-01 08:32] LABS: Abs Immature Grans 0.00 10^3/uL (0.0-0.06); HCT 21.5 % (40.0-50.0); HGB 7.6 g/dL (13.5-17.5); Immature Grans % 0.0 %; MCH 32.2 pg (27.0-33.0); MCHC 35.3 % (32.0-36.0); MCV 91 fL (80-95); RBC 2.36 10^6/uL (4.36-5.78); RDW 14.4 % (11.8-14.1); RDW-SD 47.0 fL
[2025-07-01] MEDS: Normal Saline Flush 10 ML SYR IVP (08:35)
[2025-07-01 09:09] LABS: Anisocytosis 2+
[2025-07-01 09:13] LABS: Platelet Count 6 10^3/uL (130-400); WBC 1.85 10^3/uL (4.4-10.8)
[2025-07-05] VITALS (12 sets, daily range): BP systolic 100–155; BP diastolic 50–70; PULSE 63–98; RESP 18; TEMP 36.6–36.8; O2SAT 96–99
[2025-07-05] MEDS: Normal Saline Flush 10 ML SYR IVP (08:18)
[2025-07-05 08:46] LABS: Abs Immature Grans 0.01 10^3/uL (0.0-0.06); MCH 31.4 pg (27.0-33.0); MCHC 35.2 % (32.0-36.0); MCV 89 fL (80-95); RBC 2.20 10^6/uL (4.36-5.78); RDW 15.1 % (11.8-14.1); RDW-SD 47.5 fL
[2025-07-05 09:42] LABS: Hypochromasia 2+
[2025-07-05 09:53] LABS: WBC 1.15 10^3/uL (4.4-10.8)
[2025-07-05 09:54] LABS: HCT 19.6 % (40.0-50.0); HGB 6.9 g/dL (13.5-17.5)
[2025-07-05 09:55] LABS: Platelet Count 2 10^3/uL (130-400)
== END 2025-07-09 23:59 | disposition home or self-care (01) ==
LOC: INF 00:02
PROVIDERS: Nurse Practitioner Adult Health; PCP Internal Medicine; Visit Provider Internal Medicine Hematology & Oncology
DX: C92.00 Acute myeloblastic leukemia, not having achieved remission (principal)
CPT/HCPCS: 36415; 36430; 86850; 86900; 86901; 86920; P9073; 85025; P9016; P9035